=== PATIENT | female | born 1945 | race Caucasian/White ===

== ENCOUNTER 2020-02-02 10:48 | Emergency (ER) | payer MEDICARE, SELFPAY ==
[2020-02-02] VITALS (10 sets, daily range): BP systolic 88–124; BP diastolic 46–97; PULSE 90–126; RESP 18–28; TEMP 36.3–37.4; O2SAT 95–99
--- NOTE | ~2020-02-02 | CT_ITS ---
EXAMINATION: CTA chest PE protocol EXAM DATE: 02/02/2020 12:43 INDICATION: Shortness of breath, fever, right lung cancer. TECHNIQUE: Spiral CTA of the chest (pulmonary arteries) was performed with 100 cc Omnipaque 350 intr avenous contrast injection. Images were acquired during the pulmonary arterial phase. Coronal maxi mum intensity projection 3D-reconstructions were created by the technologist on dedicated workstation . Axial, coronal and sagittal reformatted images were reviewed. The dose-length product (DLP) for t his examination was 348.81 mGy-cm. The exposure was tailored according to patient size (auto mA exp osure control), and iterative reconstruction (ASIR) was used as additional dose reduction technique. Comparison is made to prior examination from 09/06/2017. FINDINGS: No pulmonary emboli. Significant interval increase in size of infiltrative right hilar mas s radiating out to the periphery consistent with lymphangitic spread. Small amount of ill-defined lef t perihilar nonspecific airspace disease, acute versus chronic. There is mild to moderate emphysema. No thoracic aortic dissection. There are no pleural or pericardial effusions. Tracheobronchial jamal e is patent. There is no mediastinal, hilar or axillary lymphadenopathy. There is no pneumothorax . Heart normal in size. There is moderate coronary arterial calcification, arterial sclerosis. Th ere is small sliding gastroesophageal hiatal hernia. Upper abdomen is unremarkable. There is thora cic spondylosis without osteoblastic or osteolytic lesions identified. IMPRESSION: 1. Large right hilar infiltrative mass, carcinomatosis extending from the apex down to the infrahila r region. 2. Small left perihilar nonspecific ill-defined airspace disease, could be infection or carcinomatos is. 3. Mild to moderate emphysema. 4. No pulmonary emboli. Reviewed, dictated and finalized at location B. IMPRESSION: 1. Large right hilar infiltrative mass, carcinomatosis extending from the apex down to the infrahilar region. 2. Small left perihilar nonspecific ill-defined airspace disease, could be inf ection or carcinomatosis. 3. Mild to moderate emphysema. 4. No pulmonary emboli.
--- NOTE | 2020-02-02 11:10 | ECG_ITS ---
Measurements Intervals [place] Rate: 139 P: CA: 0 QRS: -68 QRSD: 102 T: 79 QT: 331 QTc: 504 Interpretive Statements SINUS TACHYCARDIA SUPRAVENTRICULAR BIGEMINY LEFT AXIS DEVIATION INCOMPLETE RIGHT BUNDLE BRANCH BLOCK DELAYED PRECORDIAL R/S TRANSITION BASELINE ARTIFACT- V4-V5 ABNORMAL ECG Electronically Signed On 02-02-2020 11:24:39 CDT by Darrian Fitch D.O.
--- NOTE | 2020-02-02 11:14 | PC.NURSE ---
pt hand-off report given to bruce Rojo
--- NOTE | 2020-02-02 11:30 | ED.SOB ---
HPI - SOB/Dyspnea General Chief Complaint: Shortness of Breath/Dyspnea Stated Complaint: SOB Source: patient and family Mode of arrival: ambulatory Limitations: no limitations History of Present Illness HPI Narrative: Patient is a 75-year-old female who presents to the emergency department with complaints of shortness of breath. Patient does have extensive history of lung issues including active lung cancer. Earlier this year she had pneumonia and was hospitalized for approximately 3 weeks. this current bout of shortness of breath started approximately 5 days ago. She has had low-grade fevers also. She denies fevers chills nausea or vomiting. Patient that a week ago she would be able to walk around her house without much difficulty, however today she tried to go to the bathroom for her bedroom and was exhausted and out of breath. Her respiratory status normally include some mild shortness of breath, however her shortness of breath now is quite excessive. MD elicited complaint: shortness of breath and cough Pertinent past history: pneumonia and IV drug use Onset (ago): day(s) (5) Context: recent illness Timing: constant Severity: mild Exacerbating factors: exertion, coughing, inspiration and stress Relieving factors: nothing Known history of: recurrent pneumonia and other ( Cancer) Associated symptoms: fever, cough, sputum production and lightheadedness Treatment prior to arrival: none Related Data Home Medications Medication Instructions Recorded Confirmed albuterol sulfate 2 puff INHALATION PRN 07/09/19 02/02/20 atorvastatin 10 mg PO DAILY 07/09/19 02/02/20 diltiazem HCl [Cartia XT] 120 mg PO DAILY 07/09/19 02/02/20 levothyroxine 125 mcg PO DAILY 07/09/19 02/02/20 lisinopril 10 mg PO DAILY 07/09/19 02/02/20 montelukast 10 mg PO DAILY 07/09/19 02/02/20 ondansetron HCl [Zofran] 4 mg PO Q6H PRN 07/09/19 02/02/20 paroxetine HCl 40 mg PO DAILY 07/09/19 02/02/20 Allergies Allergy/AdvReac Type Severity Reaction Status Date / Time erythromycin base AdvReac Palpitation Verified 07/04/19 13:34 s tramadol AdvReac Vomiting Verified 07/04/19 13:34 Review of Systems Constitutional: Constitutional: Denies chills, Reports fatigue, Reports fever(s) and Reports weakness Eyes: Eyes: Reports no additional eye complaints ENT: Reports system reviewed and no additional complaints, except as documented Cardiovascular: Cardiovascular: Denies chest pain, Denies rapid heart rate, Denies radiating jaw, neck or arm pain and Denies slow heart rate Respiratory: Respiratory: Denies chest congestion, Reports cough, Reports dyspnea and Denies wheezing Gastrointestinal: Gastrointestinal: Reports no additional gastrointestinal complaints Musculoskeletal: Musculoskeletal: Reports no additional musculoskeletal complaints Neurologic: Denies confusion, Denies vertigo, Denies dizziness, Denies syncope, Denies headache(s), Denies focal weakness, Denies numbness and Reports weakness Psychiatric: Psychiatric: Reports no additional psychiatric complaints Endocrine: Endocrine: Reports no additional endocrine complaints Hematologic/Lymphatic: Hematologic/Lymphatic: Reports no additional hematologic/lymphatic complaints Allergic/Immunologic: Allergic/Immunologic: Reports no additional allergic/immunologic complaints PMFSH Past Medical History Medical History Anxiety Asthma COPD (chronic obstructive pulmonary disease) Hypertension Hypothyroidism Osteoarthritis Surgical History Surgical History History of lung biopsy Hx of cataract surgery Social History Social History Smoking status: Former smoker Alcohol intake: former Substance use: never Gender identity (if verbalized by the patient): Female Exam Const: General: no acute distress, alert and ill a
[2020-02-02 11:50] LABS: Base Excess ABG -0.9 mmol/L (0-2); HCO3 ABG 20.4 mmol/L (23-29); Oxygen Content ABG 20.7 %vol (16.0-22.0); Oxygen Saturation ABG 90.3 % (95-97); Oxyhemoglobin 87.8 % (94-100); PCO2 ABG 26.6 mmHg (35-45); PO2 ABG 55.8 mmHg (75-85); Total Hemoglobin 16.8 g/dL
[2020-02-02 11:51] LABS: Modified Allen's Test Pass; Site Drawn LEFT BRACHIAL
[2020-02-02 11:52] LABS: Device ROOM AIR
[2020-02-02 11:57] LABS: Basophils Absolute Auto 0.02 K/mm3 (0.00-0.10); Basophils Percent Auto 0.3 % (0.0-1.0); Eosinophils Absolute Auto 0.07 K/mm3 (0.02-0.50); Eosinophils Percent Auto 0.9 % (1.0-6.0); Hematocrit 35.9 % (35.0-42.0); Hemoglobin 12.5 g/dL (11.7-13.8); Immature Granulocyte Absolute 0.03 K/mm3 (0.00-0.00); Immature Granulocyte Percent A 0.4 % (0.0-0.0); Lymphocytes Absolute Auto 0.58 K/mm3 (1.10-4.50); Lymphocytes Percent Auto 7.3 % (18.0-42.0); Mean Corpuscular HGB Conc 34.8 g/dL (32.0-36.0); Mean Corpuscular Hemoglobin 32.7 pg (27.0-31.0); Mean Platelet Volume 9.1 fl (9.2-11.8); Monocytes Absolute Auto 0.99 K/mm3 (0.10-0.90); Monocytes Percent Auto 12.5 % (2.0-11.0); Neutrophils Absolute Auto 6.3 K/mm3 (1.7-7.2); Neutrophils Percent Auto 78.6 % (50.0-70.0); Platelet Count Result 235 K/mm3 (150-420); Red Blood Count 3.82 M/mm3 (4.20-5.40); Red Cell Distribution Width 14.5 % (11.6-14.4)
[2020-02-02] MEDS: ACETAMINOPHEN 325 MG TABLET 650 MG PO (11:57)
[2020-02-02] MEDS: SODIUM CHLORIDE 0.9% IV 1,000 ML 999 ML IV CONT ×3 (11:57→14:56)
[2020-02-02 12:00] LABS: Add Urine Microscopic? YES; Appearance Urine Sl Cloudy (Clear); Bilirubin Urine 1+ (Negative); Blood Urine 3+ (Negative); Color Urine Amber (Yellow); Glucose Urine UA Trace (Negative); Ketones Urine Trace (Negative); Leukocyte Esterase Ur Negative LEU/UL (Negative); Nitrate Urine Positive (Negative); Protein Urine 2+ (Negative); Specific Grav Ur >= 1.030 (1.010-1.020); pH Urine 5.5 (5.0-8.0)
[2020-02-02 12:09] LABS: BNP 299 pg/mL (0-100)
[2020-02-02 12:12] LABS: Alanine Aminotransferase 13 U/L (14-59); Albumin Level 2.7 g/dL (3.4-5.0); Alkaline Phosphatase 158 U/L (46-116); Anion Gap 15.4 mmol/L (7-16); Aspartate Amino Transferase 14 U/L (15-37); Blood Urea Nitrogen 12 mg/dL (7-18); Carbon Dioxide 23 mmol/L (21-32); Chloride 99 mmol/L (98-108); Estimated CRCL calculation 46 ml/min; Estimated Glomerular Filt Rate > 60; Glucose 124 mg/dL (70-99); Magnesium 1.7 mg/dL (1.8-2.4); Osmolality Calculated 278 mOsm/kg (285-295); Potassium 3.4 mmol/L (3.5-5.1); Sodium 134 mmol/L (136-145); Total Protein 7.1 g/dL (6.4-8.2)
[2020-02-02 12:13] LABS: Troponin I < 0.02 ng/mL (0.00-0.056)
[2020-02-02 12:15] LABS: Bacteria Urine 4+ /hpf; Mucus Urine Heavy /lpf; RBC Urine 51-75 /hpf (0-2); Squamous Epithelial Cell Urine Many /hpf (Few)
--- NOTE | 2020-02-02 12:20 | PC.NURSE ---
Pt to ct via stretcher.
[2020-02-02 12:32] LABS: Influenza Control Valid (Valid)
--- NOTE | 2020-02-02 12:35 | PC.NURSE ---
Pt returned to department.
[2020-02-02] MEDS: ALBUTEROL SULFATE (*SP) INHALER 2 PUFF INHALATION (12:53)
[2020-02-02] MEDS: dilTIAZem HCl INJ 25 MG/5 ML VIAL 5 MG IV PUSH (12:54)
--- NOTE | 2020-02-02 13:21 | ECG_ITS ---
Measurements Intervals [place] Rate: 98 P: 3 PA: 164 QRS: -48 QRSD: 101 T: 80 QT: 278 QTc: 356 Interpretive Statements SINUS RHYTHM INCOMPLETE RIGHT BUNDLE BRANCH BLOCK LEFT ANTERIOR FASCICULAR BLOCK BORDERLINE ST-T WAVE ABNORMALITY- LATERAL LEADS BASELINE WANDER- I, II, III, AVR, AVL, V2-V4 ABNORMAL ECG Electronically Signed On 02-02-2020 13:37:22 CDT by Darrian Fitch D.O.
--- NOTE | 2020-02-02 13:31 | PC.NURSE ---
Pt requesting [facility] for further care. Call placed to transfer line
[2020-02-02] MEDS: NICOTINE (*PBKC) 21 MG PATCH 1 PATCH TRANSDERM (13:50)
[2020-02-02] MEDS: POTASSIUM CHLORIDE 20 MEQ PACKET (FOR LIQUID) PO (13:51)
[2020-02-02] MEDS: MAGNESIUM OXIDE 400 MG TABLET PO (13:51)
== END 2020-02-02 18:36 | disposition short-term general hospital (02) ==
LOC: CHSED 10:51
PROVIDERS: Emergency Provider Emergency Medicine; PCP Internal Medicine
DX: J44.9 Chronic obstructive pulmonary disease, unspecified (principal); C34.90 Malignant neoplasm of unspecified part of unspecified bronchus or lung; I10 Essential (primary) hypertension; E03.9 Hypothyroidism, unspecified; Z87.891 Personal history of nicotine dependence; R82.90 Unspecified abnormal findings in urine
CPT/HCPCS: 36415; 36600; 71275; 80053; 81001; 82805; 83735; 83880; 84484; 85025; 85380; 87040; 87086; 87804; 93005; 96361; 96365; 96367; 99285; A9270; J0456; J1956; J7030; Q9965

== ENCOUNTER 2020-08-10 12:03 | Outpatient (CLI) | payer MEDICARE, SELFPAY ==
[2020-08-10 13:03] LABS: SARS-CoV-2 Ag Negative (Negative)
== END 2020-08-10 12:04 | disposition home or self-care (01) ==
LOC: CHSLAB 12:06
PROVIDERS: PCP Internal Medicine; Visit Provider Internal Medicine
DX: R05 Cough (principal); R50.9 Fever, unspecified
CPT/HCPCS: 87426; C9803

== ENCOUNTER 2020-08-11 10:53 | Outpatient (CLI) | payer MEDICARE, SELFPAY ==
--- NOTE | ~2020-08-11 | CT_ITS ---
EXAMINATION: CT chest abdomen pelvis w con DATE: 08/11/2020 12:11 INDICATION: Right upper quadrant abdominal pain. TECHNIQUE: Computed tomography (CT) of the chest, abdomen, and pelvis was performed with 100 mL Omnip aque 350 intravenous contrast. Automated exposure control and iterative reconstruction technique were employed. The dose-length product was 650.19 mGy-cm. COMPARISON: Chest CT 02/02/2020, 09/06/2017 FINDINGS: CHEST CT: There is mild emphysema. Again seen is a 6 mm nodule in left lower lobe that measured 4 mm on 8. Again seen are groundglass opacities in left upper lobe, likely radiation pneumonitis. There is an ill-defined right perihilar mass with collapse of right lung upper lobe. There are perihilar airspac e opacities in right middle lobe and right lower lobe with volume loss and varicose bronchiectasis, c onsistent with radiation pneumonitis. There are airspace and groundglass opacities and tree-in-bud op acities in right lower lobe anteriorly, consistent with pneumonia. There is a small right pleural eff usion. The heart size is normal. There are coronary artery calcifications. No pericardial effusion. T here is moderate thoracic spondylosis. ABDOMEN/PELVIS CT: There is an 8 mm cyst in the liver. There is a small sliding hiatal hernia. The spleen and adrenal gl ands are normal. A calcification the pancreas is is consistent with chronic pancreatitis. There is a 7 mm stone in right kidney. Left kidney is normal. There is a 4.5 cm fusiform aneurysm of infrarenal aorta. There are no dilated loops of bowel. The appendix is normal. There are no pathologically enlar ged lymph nodes. There is no free intraperitoneal fluid. There is severe lumbar spondylosis. IMPRESSION: 1. Stable ill-defined right perihilar mass with right upper lobe collapse, consistent with primary br onchogenic carcinoma. 2. 6 mm left lower lobe pulmonary nodule without change from 02/02/2020, but worsened from 4 mm on 09/06. This finding is indeterminate for metastatic disease. 3. Mild pneumonia in right lung lower lobe. 4. Radiation pneumonitis in the lungs, right worse than left. 5. 4.5 cm fusiform aneurysm of infrarenal aorta. Reviewed, dictated and finalized at location A. 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 Stable ill-defined right perihilar mass with right upper lobe collapse, cons istent with primary bronchogenic carcinoma. 2. 6 mm left lower lobe pulmonary nodule without change from 02/02/2020, but wor sened from 4 mm on 09/06/2017. This finding is indeterminate for metastatic disea se. 3. Mild pneumonia in right lung lower lobe. 4. Radiation pneumonitis in the lungs, right worse than left. 5. 4.5 cm fusiform aneurysm of infrarenal aorta.
[2020-08-11 11:09] LABS: Add Urine Microscopic? YES; Appearance Urine Clear (Clear); Basophils Absolute Auto 0.04 K/mm3 (0.00-0.10); Basophils Percent Auto 0.9 % (0.0-1.0); Bilirubin Urine Negative (Negative); Blood Urine 3+ (Negative); Color Urine Yellow (Yellow); Eosinophils Absolute Auto 0.22 K/mm3 (0.02-0.50); Eosinophils Percent Auto 4.7 % (1.0-6.0); Glucose Urine UA Negative (Negative); Hematocrit 36.7 % (35.0-42.0); Hemoglobin 12.2 g/dL (11.7-13.8); Immature Granulocyte Absolute 0.02 K/mm3 (0.00-0.00); Immature Granulocyte Percent A 0.4 % (0.0-0.0); Ketones Urine Negative (Negative); Leukocyte Esterase Ur Negative LEU/UL (Negative); Lymphocytes Absolute Auto 0.79 K/mm3 (1.10-4.50); Lymphocytes Percent Auto 16.9 % (18.0-42.0); Mean Corpuscular HGB Conc 33.2 g/dL (32.0-36.0); Mean Corpuscular Volume 96.3 fL (78.0-102.0); Mean Platelet Volume 8.4 fl (9.2-11.8); Monocytes Absolute Auto 0.44 K/mm3 (0.10-0.90); Monocytes Percent Auto 9.4 % (2.0-11.0); Neutrophils Absolute Auto 3.2 K/mm3 (1.7-7.2); Neutrophils Percent Auto 67.7 % (50.0-70.0); Nitrate Urine Negative (Negative); Platelet Count Result 272 K/mm3 (150-420); Protein Urine Negative (Negative); Red Blood Count 3.81 M/mm3 (4.20-5.40); Red Cell Distribution Width 13.9 % (11.6-14.4); Specific Grav Ur >= 1.030 (1.010-1.020); White Blood Count 4.7 K/mm3 (4.8-10.8); pH Urine 5.5 (5.0-8.0)
[2020-08-11 11:23] LABS: Estimated Glomerular Filt Rate > 60
[2020-08-11 11:28] LABS: Alanine Aminotransferase 14 U/L (14-59); Albumin Level 3.1 g/dL (3.4-5.0); Alkaline Phosphatase 164 U/L (46-116); Anion Gap 8 mmol/L (8-16); Aspartate Amino Transferase 11 U/L (15-37); Bilirubin,Total 0.3 mg/dL (0.00-1.00); Blood Urea Nitrogen 8 mg/dL (7-18); Calcium 9.2 mg/dL (8.5-10.1); Carbon Dioxide 27 mmol/L (21-32); Chloride 102 mmol/L (98-108); Glucose 115 mg/dL (70-99); Osmolality Calculated 283 mOsm/kg (285-295); Potassium 3.6 mmol/L (3.5-5.1); Sodium 137 mmol/L (136-145); Total Protein 7.5 g/dL (6.4-8.2)
[2020-08-11 11:35] LABS: Influenza Control Valid (Valid)
[2020-08-11 12:07] LABS: Bacteria Urine 1+ /hpf; RBC Urine 21-50 /hpf (0-2); Squamous Epithelial Cell Urine Moderate /hpf (Few); WBC Urine 0-3 /hpf (0-3)
== END 2020-08-11 10:54 | disposition home or self-care (01) ==
PROVIDERS: PCP Internal Medicine; Visit Provider Internal Medicine
DX: R10.11 Right upper quadrant pain (principal); Z85.118 Personal history of other malignant neoplasm of bronchus and lung; R05 Cough
CPT/HCPCS: 71260; 74177; 80053; 81001; 85025; 87804; Q9965; Q9967

== ENCOUNTER 2020-08-19 12:27 | Outpatient (CLI) | payer MEDICARE, SELFPAY | END 2020-08-19 12:28 | disposition home or self-care (01) | LOC: CHSLAB 12:28 | PROVIDERS: PCP Internal Medicine; Visit Provider Internal Medicine | DX: R31.9 Hematuria, unspecified (principal) | CPT/HCPCS: 88112 ==

== ENCOUNTER 2020-08-27 09:17 | Outpatient (CLI) | payer MEDICARE, SELFPAY ==
--- NOTE | ~2020-08-27 | XR_ITS ---
EXAMINATION: XR chest 2V EXAM DATE: 08/27/2020 09:42 INDICATION: f/u pneumonia from 1mo ago, smoker, hx lung CA. Follow-up pneumonia. TECHNIQUE: Frontal and lateral projections of the chest obtained and reviewed. Comparison is made to prior examination from 07/16/2019. FINDINGS: There is right hilar prominence, right-sided volume loss, partial pneumonectomy, patient re portedly has treated lung cancer. Can't identify the small amount of right middle lobe pneumonia seen on chest CT from earlier this month. Left lung is clear. Some chronic hyperinflation. Cardiomediasti nal silhouette is normal. There is aortic arteriosclerosis. There are bony degenerative changes. IMPRESSION: 1. No acute cardiac pulmonary findings. 2. Treated right upper lobe malignancy. Reviewed, dictated and finalized at location A. 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
== END 2020-08-27 09:18 | disposition home or self-care (01) ==
LOC: CHSLAB 09:18 → CHSIMG 09:23
PROVIDERS: PCP Internal Medicine; Visit Provider Internal Medicine
DX: Z51.89 Encounter for other specified aftercare (principal); J18.9 Pneumonia, unspecified organism
CPT/HCPCS: 71046

== ENCOUNTER 2020-10-15 12:09 | Outpatient (CLI) | payer MEDICARE, SELFPAY ==
[2020-10-15 13:06] LABS: SARS-CoV-2 Ag Negative (Negative)
== END 2020-10-15 12:10 | disposition home or self-care (01) ==
LOC: CHSLAB 12:11
PROVIDERS: PCP Internal Medicine; Visit Provider Internal Medicine
DX: Z20.822 Contact with and (suspected) exposure to COVID-19 (principal)
CPT/HCPCS: 87426; C9803

== ENCOUNTER 2020-11-18 13:44 | Outpatient (CLI) | payer MEDICARE, SELFPAY ==
--- NOTE | ~2020-11-18 | XR_ITS ---
XR chest 2V DATE: 11/18/2020 14:06 INDICATION: Dyspnea, labored breathing for 4 days. Nonsmoker. COPD. History of lung cancer. TECHNIQUE: PA and lateral views COMPARISON: 08/27/2020 2 view chest 08/11/2020 CT chestFS FINDINGS: There is chronic volume loss of the right lung with rightward shift of heart and mediastinu m, unchanged since 08/25/2020. There is chronic focal posterior infiltrate and/or mass density in the mid to upper right lung. Pulmonary hyperinflation, consistent with COPD. Normal heart size. Aortic calcification. Diffuse osteopenia. Degenerative changes of the cervical, thoracic and lumbar spine IMPRESSION: Little interval change since 08/27/2020 Reviewed, dictated and finalized at location A.
[2020-11-18 14:08] LABS: Basophils Absolute Auto 0.03 K/mm3 (0.00-0.10); Basophils Percent Auto 0.4 % (0.0-1.0); Eosinophils Percent Auto 1.3 % (1.0-6.0); Hematocrit 38.2 % (35.0-42.0); Hemoglobin 12.7 g/dL (11.7-13.8); Immature Granulocyte Absolute 0.03 K/mm3 (0.00-0.00); Immature Granulocyte Percent A 0.4 % (0.0-0.0); Lymphocytes Absolute Auto 1.16 K/mm3 (1.10-4.50); Lymphocytes Percent Auto 15.5 % (18.0-42.0); Mean Corpuscular HGB Conc 33.2 g/dL (32.0-36.0); Mean Corpuscular Hemoglobin 31.6 pg (27.0-31.0); Mean Platelet Volume 8.8 fl (9.2-11.8); Monocytes Absolute Auto 0.75 K/mm3 (0.10-0.90); Neutrophils Absolute Auto 5.4 K/mm3 (1.7-7.2); Neutrophils Percent Auto 72.4 % (50.0-70.0); Platelet Count Result 277 K/mm3 (150-420); Red Blood Count 4.02 M/mm3 (4.20-5.40); Red Cell Distribution Width 14.6 % (11.6-14.4); White Blood Count 7.5 K/mm3 (4.8-10.8)
[2020-11-18 14:34] LABS: Alanine Aminotransferase 18 U/L (14-59); Albumin Level 3.3 g/dL (3.4-5.0); Alkaline Phosphatase 212 U/L (46-116); Anion Gap 12 mmol/L (8-16); Aspartate Amino Transferase 14 U/L (15-37); Bilirubin,Total 0.7 mg/dL (0.00-1.00); Blood Urea Nitrogen 12 mg/dL (7-18); Calcium 9.4 mg/dL (8.5-10.1); Carbon Dioxide 25 mmol/L (21-32); Chloride 100 mmol/L (98-108); Estimated Glomerular Filt Rate > 60; Glucose 107 mg/dL (70-99); Osmolality Calculated 283 mOsm/kg (285-295); Sodium 137 mmol/L (136-145); Total Protein 7.2 g/dL (6.4-8.2)
[2020-11-18 19:18] LABS: Appearance Urine Clear (Clear); Bilirubin Urine Negative (Negative); Color Urine Yellow (Yellow); Glucose Urine UA Negative (Negative); Ketones Urine Negative (Negative); Leukocyte Esterase Ur Negative LEU/UL (Negative); Nitrate Urine Negative (Negative); Protein Urine Trace (Negative); Specific Grav Ur 1.025 (1.010-1.020); Urobilinogen Urine 0.2 mg/dL (0.2-1.0); pH Urine 6.5 (5.0-8.0)
[2020-11-18 19:30] LABS: Add Urine Microscopic? YES; Blood Urine Trace-Intact (Negative); WBC Urine 16-20 /hpf (0-3)
[2020-11-18 19:31] LABS: Bacteria Urine 3+ /hpf; Mucus Urine Heavy /lpf; Squamous Epithelial Cell Urine Many /hpf (Few)
== END 2020-11-18 13:45 | disposition home or self-care (01) ==
LOC: CHSLAB 13:45
PROVIDERS: PCP Internal Medicine; Visit Provider Nurse Practitioner Family
DX: J44.1 Chronic obstructive pulmonary disease with (acute) exacerbation (principal); R82.90 Unspecified abnormal findings in urine
CPT/HCPCS: 36415; 71046; 80053; 81001; 85025; 87086

== ENCOUNTER 2021-03-11 08:05 | Outpatient (CLI) | payer MEDICARE, SELFPAY ==
--- NOTE | ~2021-03-11 | XR_ITS ---
XR barium swallow DATE: 03/11/2021 08:45 INDICATION: Food sticking in the upper thoracic area. History 2 courses of radiation therapy for lung cancer. TECHNIQUE: Single contrast upper gastrointestinal series 1.5 minutes fluoroscopy time; 92 images DAP: 4.8 COMPARISON: None FINDINGS: There is tapered narrowing of the esophagus beginning superiorly at the level of the aortic arch with severe stricture of the mid esophageal lumen and proximal delayed contrast material retent ion, likely due to radiotherapy. No persistent intraluminal filling defect is noted. Small sliding hiatal hernia. 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 Reviewed, dictated and finalized at location B.
== END 2021-03-11 08:06 | disposition home or self-care (01) ==
LOC: CHSIMG 08:06
PROVIDERS: PCP Internal Medicine; Visit Provider Internal Medicine
DX: R13.19 Other dysphagia (principal)
CPT/HCPCS: 74220

== ENCOUNTER 2021-04-29 18:21 | Emergency (ER) | payer MEDICARE, SELFPAY ==
[2021-04-29] VITALS (7 sets, daily range): BP systolic 97–113; BP diastolic 55–74; PULSE 107–161; RESP 16–22; TEMP 36.6–37; O2SAT 95
--- NOTE | ~2021-04-29 | CT_ITS ---
EXAMINATION: CTA chest PE protocol DATE: 04/29/2021 20:22 INDICATION: Shortness of breath, wheezing and weakness TECHNIQUE: Computed tomography (CT) pulmonary angiogram of the chest was performed with 100 mL Omnipa que-350 intravenous contrast. Additional 3D reconstructions utilizing coronal maximum intensity proje ction (MIP) were performed. Automated exposure control and iterative reconstruction technique were em ployed. The dose-length product was 314.24 mGy-cm. COMPARISON: 08/11/2020 and 02/02/2020 FINDINGS: Excellent contrast opacification of the pulmonary arteries. There is mild streak artifact from dense contrast in the superior vena cava and right atrium. Mild scattered respiratory motion artifact which does not significantly limit evaluation. No pulmonary embolism. Mild emphysema. Chronic collapse and consolidation of the right upper lobe. Interval improvement in additional perihilar atelectasis and consolidation in the right middle lobe and superior segment of the right lower lobe which is likely r elated to prior radiation treatment. New small region of discoid atelectasis/scarring at the medial b asilar left lower lobe. Also significantly improved are now subtle tree-in-bud opacities at the anter ior basilar right lower lobe likely sequela of prior infection. No pulmonary edema or pleural effusio n. Unchanged 6 mm left lower lobe pulmonary nodule. Normal sized heart which is shifted slightly towards the right due to the volume loss in the right mimi ng. Atherosclerotic coronary artery calcific location. No pericardial effusion. Enlargement of the ce ntral pulmonary arteries consistent with pulmonary arterial hypertension. Atherosclerotic calcificati ons along the normal caliber thoracic aorta with no dissection. Small sliding-type hiatal hernia. Wal l thickening in the mid to distal esophagus which could be due to esophagitis related to reflux, infe ction or radiation treatment. There is some layering fluid in the proximal to mid thoracic esophagus. No pathologically enlarged thoracic lymphadenopathy. Visualized upper abdomen is unremarkable. Sever e spondylosis in the upper lumbar spine with moderate thoracic and lower cervical spondylosis. There are bridging osteophytes at multiple levels in the thoracic spine consistent with diffuse idiopathic skeletal hyperostosis (DISH). IMPRESSION: 1. No pulmonary embolism or other acute cardiopulmonary disease. 2. Persistent right upper lobe collapse with improvement in perihilar consolidation in the right midd le and superior segment right lower lobes, likely sequela of radiation treatment of a reported right upper lobe primary bronchogenic carcinoma. 3. Mild emphysema. 4. Mild residual tree-in-bud opacities in the anterobasilar right lower lobe likely sequela of chroni c infection. 5. Enlargement of the central pulmonary arteries consistent with pulmonary arterial hypertension. 6. Small sliding-type hiatal hernia with wall thickening in the mid to distal esophagus consistent wi th esophagitis which could be due to reflux, infection or prior radiation treatment. Reviewed, dictated and finalized at location A. IMPRESSION: 1. No pulmonary embolism or other acute cardiopulmonary disease. 2. Persistent right upper lobe collapse with improvement in perihilar consolida tion in the right middle and superior segment right lower lobes, likely sequela of radiation treatment of a reported right upper lobe primary bronchogenic car cinoma. 3. Mild emphysema. 4. Mild residual tree-in-bud opacities in the anterobasilar right lower lobe li elmer sequela of chronic infection. 5. Enlargement of the central pulmonary arteries consistent with pulmonary sidney rial hypertension. 6. Small sliding-type hiatal hernia with wall thickening in th
--- NOTE | 2021-04-29 18:34 | ECG_ITS ---
Measurements Intervals [place] Rate: 151 P: [place]: 0 QRS: -34 QRSD: 92 T: 80 QT: 277 QTc: 440 Interpretive Statements ATRIAL FIBRILLATION WITH RAPID VENTRICULAR RESPONSE LEFT AXIS DEVIATION INCOMPLETE RIGHT BUNDLE BRANCH BLOCK CANNOT RULE OUT SEPTAL INFARCT, AGE INDETERMINATE BASELINE WANDER- I, AVR, AVL, V4-V6 ABNORMAL ECG Electronically Signed On 04-29-2021 20:46:21 CDT by Darrian Fitch D.O.
--- NOTE | 2021-04-29 18:43 | ED.SOB ---
HPI - SOB/Dyspnea General Chief Complaint: Shortness of Breath/Dyspnea Stated Complaint: trouble breathing,fast heart rate Source: patient and family Mode of arrival: ambulatory Limitations: no limitations History of Present Illness HPI Narrative: pt is a 76yo female who presents SOB. SHe had esophageal dilitation yesterday and today feels SOB. MD elicited complaint: shortness of breath and cough Pertinent past history: COPD Context: recent illness Timing: constant Severity: moderate Exacerbating factors: coughing Relieving factors: oxygen Known history of: COPD Associated symptoms: denies other symptoms and wheezing Treatment prior to arrival: bronchodilator (4 pm today) Related Data Home Medications Medication Instructions Recorded Confirmed albuterol sulfate 2 puff INHALATION PRN 07/09/19 04/29/21 atorvastatin 10 mg PO DAILY 07/09/19 04/29/21 levothyroxine 125 mcg PO DAILY 07/09/19 04/29/21 montelukast 10 mg PO DAILY 07/09/19 04/29/21 paroxetine HCl 40 mg PO HS 07/09/19 04/29/21 cyanocobalamin (vitamin B-12) 1,000 mcg SUBLINGUAL DAILY 04/29/21 04/29/21 diltiazem HCl 60 mg PO BID 04/29/21 04/29/21 fluticasone propionate 1 spray INTRANASAL DAILY 04/29/21 04/29/21 pantoprazole 40 mg PO BID 04/29/21 04/29/21 umeclidinium-vilanterol 1 inh INHALATION DAILY 04/29/21 04/29/21 Allergies Allergy/AdvReac Type Severity Reaction Status Date / Time erythromycin base AdvReac Palpitation Verified 07/04/19 13:34 s tramadol AdvReac Vomiting Verified 07/04/19 13:34 Review of Systems Constitutional: Constitutional: Reports fatigue (had general anesthetic yesterday with espohageal dilitation) ENT: Reports sore throat Respiratory: Respiratory: Reports cough, Reports dyspnea and Reports wheezing Gastrointestinal: Gastrointestinal: Denies constipation, Denies diarrhea, Denies nausea and Denies vomiting Genitourinary: Genitourinary: Reports no additional female genitourinary complaints Musculoskeletal: Musculoskeletal: Reports no additional musculoskeletal complaints Integumentary/Breasts: Skin/Breast: Reports system reviewed and no additional complaints, except as docu Neurologic: Reports system reviewed and no additional complaints, except as documented Psychiatric: Psychiatric: Reports no additional psychiatric complaints Endocrine: Endocrine: Reports no additional endocrine complaints Hematologic/Lymphatic: Hematologic/Lymphatic: Reports no additional hematologic/lymphatic complaints Allergic/Immunologic: Allergic/Immunologic: Reports no additional allergic/immunologic complaints [facility] Past Medical History Medical History (Updated 04/29/21 @ 21:49 by Radha Viera MD) Anxiety Asthma COPD (chronic obstructive pulmonary disease) Hypertension Hypothyroidism Osteoarthritis Surgical History Surgical History History of lung biopsy Hx of cataract surgery Social History Social History Smoking status: Former smoker Alcohol intake: former Substance use: never Gender identity (if verbalized by the patient): Female Exam Const: General: no acute distress and alert Orientation/consciousness: patient oriented x3 Other: speaking full sentences, tachpnea noted HENMT: Head: normal to inspection Eyes: Pupils: Equal, round and reactive pupils present Chest: Other: tachypnea Resp: Auscultation: wheezes Cardio: Rate: regular rate Rhythm: regular rhythm GI: GI Palp: Yes Soft to palpation, No Tenderness to palpation present (GI) and No Guarding due to palpation present (GI) : General: Yes no CVA tenderness Back/Spine/Pelvis: Back: no CVA tenderness Skin: General skin exam: normal color Neuro: General: patient oriented x3, moves all extremities, no meningeal signs and no focal motor deficits Extrem: General: normal to inspection Psych: Mental Status: mental status
[2021-04-29] MEDS: dilTIAZem HCl INJ 25 MG/5 ML VIAL 10 MG IV PUSH (18:45)
[2021-04-29] MEDS: methylPREDNISolone SOD SUCC 125 MG VIAL IV PUSH (18:45)
[2021-04-29] MEDS: SODIUM CHLORIDE 0.9% IV 500 ML 999 ML ×2 (19:03→20:08)
[2021-04-29 19:08] LABS: Alveolar/Arterial O2 Gradient 34.3 mmHg; Base Excess ABG 4.4 mmol/L (0-2); Carboxyhemoglobin 3.4 % (0-1.5); Fractional Inspired Oxygen 21 %; HCO3 ABG 27.1 mmol/L (23-29); Methemoglobin ABG 0.3 % (0-1.5); Oxygen Content ABG 17.7 %vol (16.0-22.0); Oxygen Saturation ABG 95.4 % (95-97); Oxyhemoglobin 91.9 % (94-100); PCO2 ABG 34.4 mmHg (35-45); PO2 ABG 74.2 mmHg (75-85); PO2 FiO2 Ratio Arterial Blood 3.53 %; Reduced Hemoglobin 4.4 % (0-1.5); Total Hemoglobin 13.7 g/dL (12.0-18.0); pH ABG 7.51 (7.35-7.45)
[2021-04-29 19:10] LABS: Basophils Absolute Auto 0.05 K/mm3 (0.00-0.10); Basophils Percent Auto 0.6 % (0.0-1.0); Eosinophils Absolute Auto 0.16 K/mm3 (0.02-0.50); Eosinophils Percent Auto 1.8 % (1.0-6.0); Hematocrit 39.1 % (35.0-42.0); Hemoglobin 13.1 g/dL (11.7-13.8); Immature Granulocyte Absolute 0.04 K/mm3 (0.00-0.00); Immature Granulocyte Percent A 0.4 % (0.0-0.0); Lymphocytes Absolute Auto 1.68 K/mm3 (1.10-4.50); Lymphocytes Percent Auto 18.9 % (18.0-42.0); Mean Corpuscular HGB Conc 33.5 g/dL (32.0-36.0); Mean Corpuscular Hemoglobin 31.8 pg (27.0-31.0); Mean Corpuscular Volume 94.9 fL (78.0-102.0); Mean Platelet Volume 8.8 fl (9.2-11.8); Monocytes Absolute Auto 0.97 K/mm3 (0.10-0.90); Monocytes Percent Auto 10.9 % (2.0-11.0); Neutrophils Percent Auto 67.4 % (50.0-70.0); Platelet Count Result 346 K/mm3 (150-420); Red Blood Count 4.12 M/mm3 (4.20-5.40); Red Cell Distribution Width 14.4 % (11.6-14.4); White Blood Count 8.9 K/mm3 (4.8-10.8)
[2021-04-29 19:28] LABS: Device ROOM AIR; Modified Allen's Test Pass; Site Drawn LEFT RADIAL
[2021-04-29 19:29] LABS: Magnesium 1.5 mg/dL (1.8-2.4); Troponin I 13.2 ng/L (0.00-60.4)
[2021-04-29 19:32] LABS: Alanine Aminotransferase 17 U/L (14-59); Albumin Level 3.1 g/dL (3.4-5.0); Alkaline Phosphatase 166 U/L (46-116); Anion Gap 12 mmol/L (8-16); Aspartate Amino Transferase 12 U/L (15-37); Bilirubin,Total 0.5 mg/dL (0.00-1.00); Blood Urea Nitrogen 14 mg/dL (7-18); Calcium 9.3 mg/dL (8.5-10.1); Carbon Dioxide 24 mmol/L (21-32); Chloride 103 mmol/L (98-108); Estimated Glomerular Filt Rate > 60; Glucose 122 mg/dL (70-99); Osmolality Calculated 289 mOsm/kg (285-295); Potassium 3.5 mmol/L (3.5-5.1); Sodium 139 mmol/L (136-145); Total Protein 7.5 g/dL (6.4-8.2)
--- NOTE | 2021-04-29 19:34 | PC.NURSE ---
1929 increase to 15mg/hr (cardizem)
[2021-04-29 20:16] LABS: SARS-CoV-2 Ag Negative (Negative)
[2021-04-29 20:16] LABS: Influenza Control Valid (Valid)
[2021-04-29] MEDS: MAGNESIUM SULF 2 GM/WATER 50ML 2 GM/50 ML BAG IVPB (20:25)
[2021-04-29 20:41] LABS: SARS-CoV-2 RNA PCR Negative (Negative)
[2021-04-29] MEDS: SODIUM CHLORIDE 0.9% IV 1,000 ML 999 ML IV CONT (21:20)
[2021-04-29 21:25] LABS: Appearance Urine Clear (Clear); Bilirubin Urine Negative (Negative); Color Urine Light Yellow (Yellow); Glucose Urine UA Negative (Negative); Ketones Urine Negative (Negative); Leukocyte Esterase Ur Negative LEU/UL (Negative); Nitrate Urine Negative (Negative); Protein Urine Negative (Negative)
--- NOTE | 2021-04-29 21:28 | PC.NURSE ---
cardizem decrease to 10mg/hr
[2021-04-29 21:29] LABS: Add Urine Microscopic? YES; Bacteria Urine Trace /hpf; Blood Urine Trace (Negative); RBC Urine 0-2 /hpf (0-2); Squamous Epithelial Cell Urine Rare /hpf (Few); WBC Urine 0-3 /hpf (0-3)
--- NOTE | 2021-04-29 21:34 | ECG_ITS ---
Measurements Intervals [place] Rate: 126 P: [place]: 0 QRS: -50 QRSD: 101 T: 80 QT: 320 QTc: 464 Interpretive Statements ATRIAL FIBRILLATION WITH RAPID VENTRICULAR RESPONSE LEFT AXIS DEVIATION INCOMPLETE RIGHT BUNDLE BRANCH BLOCK BORDERLINE T WAVE ABNORMALITY- ANT/HIGH LAT LEADS BASELINE WANDER- V4-V5 ABNORMAL ECG Electronically Signed On 04-30-2021 6:35:47 CDT by Darrian Fitch D.O.
[2021-04-29 21:38] LABS: Troponin I 13.3 ng/L (0.00-60.4)
[2021-04-29] MEDS: ONDANSETRON INJ 4 MG/2 ML VIAL IV PUSH (22:28)
== END 2021-04-29 22:46 | disposition short-term general hospital (02) ==
PROVIDERS: Emergency Provider Emergency Medicine; PCP Internal Medicine
DX: I48.91 Unspecified atrial fibrillation (principal); Z20.822 Contact with and (suspected) exposure to COVID-19; J44.9 Chronic obstructive pulmonary disease, unspecified; I10 Essential (primary) hypertension; E03.9 Hypothyroidism, unspecified; Z87.891 Personal history of nicotine dependence
CPT/HCPCS: 36415; 36600; 71275; 80053; 81001; 82375; 82805; 83050; 83735; 84484; 85025; 85380; 87426; 87804; 93005; 96361; 96365; 96366; 96368; 96375; 99285; C9803; J2405; J2930; J3475; J7030; J7040; Q9967; U0003; U0005

== ENCOUNTER 2021-06-29 17:33 | Emergency (ER) | payer MEDICARE, SELFPAY ==
--- NOTE | ~2021-06-29 | XR_ITS ---
XR chest 1V portable 06/29/2021 19:28 Indication: Cough, fever and dyspnea. Nausea and vomiting. Procedure: AP portable chest Comparison: Comparison to multiple prior studies sequentially, with oldest reviewed study dated 07/06. Findings: There is chronic right upper lobe scarring. There is chronic scarring right lung base with elevation of the right diaphragm. Heart size upper normal. There is atherosclerosis. There are emphys ematous changes. No acute focal pneumonia, edema or effusion. No significant interval change. Impression: 1: Extensive chronic scarring of the right lung with volume loss and elevated right diaphragm. 2: Emphysema. Reviewed, dictated and finalized at location A. OR OCCUPATIONAL THERAPIST Impression: 1: Extensive chronic scarring of the right lung with volume loss and elevated r ight diaphragm. 2: Emphysema.
[2021-06-29 17:45] VITALS: BP 115/66; PULSE 94; RESP 20; TEMP 38.7; O2SAT 94
--- NOTE | 2021-06-29 18:25 | ED.FEVER ---
HPI - Fever General Chief Complaint: Fever Stated Complaint: vomiting/allergic reaction to med Time Seen by Provider: 06/29/21 18:25 Source: patient and family Mode of arrival: ambulatory Limitations: no limitations History of Present Illness HPI Narrative: 76-year-old woman with a history of metastatic lung cancer comes to the emergency department with a 36 hour history of vomiting, fever and cough. She has recently had chemotherapy for her neoplasm which she did not tolerate well and is currently taking Keytruda. Patient is concerned that her symptoms are from the immunotherapy. She is vaccinated against COVID and influenza and has had no recent sick contacts. She denies diarrhea, rash, headache, stiff neck, chest pain, hemoptysis, dysuria, hematuria or urinary frequency. MD elicited complaint: fever and malaise Pertinent past history: immunosuppression Onset (ago): hour(s) (36) Context: on immunosuppressant(s) Exacerbating factors: nothing Relieving factors: nothing Associated symptoms: rhinorrhea, nasal congestion, cough, nausea and vomiting Treatments prior to arrival fever: acetaminophen Related Data Home Medications Medication Instructions Recorded Confirmed albuterol sulfate 2 puff INHALATION PRN 07/09/19 06/29/21 atorvastatin 10 mg PO DAILY 07/09/19 06/29/21 levothyroxine 125 mcg PO DAILY 07/09/19 06/29/21 montelukast 10 mg PO DAILY 07/09/19 06/29/21 paroxetine HCl 40 mg PO HS 07/09/19 06/29/21 cyanocobalamin (vitamin B-12) 1,000 mcg SUBLINGUAL DAILY 04/29/21 06/29/21 diltiazem HCl 60 mg PO TID 04/29/21 06/29/21 fluticasone propionate 1 spray INTRANASAL DAILY 04/29/21 06/29/21 pantoprazole 40 mg PO BID 04/29/21 06/29/21 umeclidinium-vilanterol 1 inh INHALATION DAILY 04/29/21 06/29/21 Allergies Allergy/AdvReac Type Severity Reaction Status Date / Time erythromycin base AdvReac Palpitation Verified 06/29/21 19:48 s tramadol AdvReac Vomiting Verified 06/29/21 19:48 Review of Systems Review of Systems: All systems reviewed & are unremarkable except as noted in HPI and below Constitutional: Constitutional: Denies chills, Reports fatigue and Reports fever(s) Eyes: Eyes: Denies change in vision and Denies photophobia ENT: Denies dysphagia, Reports nasal congestion and Reports sore throat Cardiovascular: Cardiovascular: Denies chest pain and Denies radiating jaw, neck or arm pain Respiratory: Respiratory: Reports cough, Reports dyspnea and Denies wheezing Gastrointestinal: Gastrointestinal: Denies diarrhea, Reports nausea and Reports vomiting Genitourinary: Genitourinary: Denies hematuria, Denies nocturia and Denies dysuria Musculoskeletal: Musculoskeletal: Denies back pain, Denies arthralgias and Denies joint swelling Integumentary/Breasts: Skin/Breast: Denies pruritus, Denies erythema and Denies rash Neurologic: Denies vertigo, Denies dizziness and Denies syncope Hematologic/Lymphatic: Hematologic/Lymphatic: Denies easy bleeding and Denies easy bruising Allergic/Immunologic: Allergic/Immunologic: Denies lip swelling and Denies throat swelling PMFSH Past Medical History Medical History (Updated 06/29/21 @ 22:04 by Osiel Sykes MD) Anxiety Asthma COPD (chronic obstructive pulmonary disease) Hypertension Hypothyroidism Osteoarthritis Surgical History Surgical History History of lung biopsy Hx of cataract surgery Social History Social History Smoking status: Former smoker Alcohol intake: former Substance use: never Gender identity (if verbalized by the patient): Female Exam Const: General: healthy appearing and alert Orientation/consciousness: patient oriented x3 Limitations: no limitations Other: Mild acute distress. HENMT: Head: normal to inspection Ears: external ears normal and TM's normal bilaterally General nose exam: Normal nares present Face an
[2021-06-29] MEDS: SODIUM CHLORIDE 0.9% IV 1,000 ML 999 ML IV CONT (19:01)
--- NOTE | 2021-06-29 19:12 | PC.NURSE ---
report to [facility]
[2021-06-29 19:15] LABS: Basophils Absolute Auto 0.03 K/mm3 (0.00-0.10); Basophils Percent Auto 0.3 % (0.0-1.0); Hematocrit 35.5 % (35.0-42.0); Hemoglobin 11.9 g/dL (11.7-13.8); Immature Granulocyte Absolute 0.06 K/mm3 (0.00-0.00); Immature Granulocyte Percent A 0.6 % (0.0-0.0); Lymphocytes Absolute Auto 0.98 K/mm3 (1.10-4.50); Lymphocytes Percent Auto 9.4 % (18.0-42.0); Mean Corpuscular HGB Conc 33.5 g/dL (32.0-36.0); Mean Corpuscular Hemoglobin 31.5 pg (27.0-31.0); Mean Corpuscular Volume 93.9 fL (78.0-102.0); Mean Platelet Volume 8.9 fl (9.2-11.8); Monocytes Absolute Auto 1.06 K/mm3 (0.10-0.90); Monocytes Percent Auto 10.1 % (2.0-11.0); Neutrophils Absolute Auto 8.4 K/mm3 (1.7-7.2); Neutrophils Percent Auto 79.6 % (50.0-70.0); Platelet Count Result 299 K/mm3 (150-420); Red Blood Count 3.78 M/mm3 (4.20-5.40); Red Cell Distribution Width 14.7 % (11.6-14.4); White Blood Count 10.5 K/mm3 (4.8-10.8)
--- NOTE | 2021-06-29 19:18 | PC.NURSE ---
attempted abg per [facility] lab staff unsuccessful. pt declined to try again.
[2021-06-29 19:35] LABS: Lactic Acid Reflex 1.2 mmol/L (0.4-2.0)
[2021-06-29 19:39] LABS: Alanine Aminotransferase 11 U/L (14-59); Albumin Level 2.9 g/dL (3.4-5.0); Alkaline Phosphatase 153 U/L (46-116); Anion Gap 13 mmol/L (8-16); Aspartate Amino Transferase 12 U/L (15-37); Bilirubin,Total 0.7 mg/dL (0.00-1.00); Blood Urea Nitrogen 22 mg/dL (7-18); Carbon Dioxide 23 mmol/L (21-32); Chloride 98 mmol/L (98-108); Estimated Glomerular Filt Rate > 60; Glucose 112 mg/dL (70-99); Osmolality Calculated 282 mOsm/kg (285-295); Potassium 3.6 mmol/L (3.5-5.1); Sodium 134 mmol/L (136-145); Total Protein 7.4 g/dL (6.4-8.2)
[2021-06-29 19:41] LABS: CRP > 25.0 mg/dL (0.0-0.9)
[2021-06-29 19:51] LABS: Influenza A QL RT-PCR Negative (Negative); Influenza B QL RT-PCR Negative (Negative); SARS-CoV-2 RNA PCR Negative (Negative)
[2021-06-29 21:01] LABS: Add Urine Microscopic? YES; Bilirubin Urine Negative (Negative); Blood Urine 3+ (Negative); Glucose Urine UA Negative (Negative); Ketones Urine Trace (Negative); Leukocyte Esterase Ur Trace LEU/UL (Negative); Nitrate Urine Negative (Negative); Protein Urine Trace (Negative); Specific Grav Ur >= 1.030 (1.010-1.020)
[2021-06-29 21:07] LABS: Appearance Urine Cloudy (Clear); Color Urine Dark Yellow (Yellow); RBC Urine >75 /hpf (0-2)
[2021-06-29 21:08] LABS: Bacteria Urine 1+ /hpf; Mucus Urine Heavy /lpf; Squamous Epithelial Cell Urine Many /hpf (Few)
[2021-06-29] MEDS: ONDANSETRON INJ 4 MG/2 ML VIAL IV PUSH (21:18)
[2021-06-29 21:27] VITALS: BP 116/59; PULSE 96; RESP 16; TEMP 37.2; O2SAT 98
[2021-06-30 00:07] VITALS: BP 117/58; PULSE 91; RESP 17; O2SAT 94
--- NOTE | 2021-07-02 19:14 | PC.NURSE ---
Lab contacted this staff member that the pt has one positive blood culture for gram positive in the aerobic bottle only. pt was transferred to [facility].
== END 2021-06-30 00:10 | disposition short-term general hospital (02) ==
PROVIDERS: Emergency Provider Emergency Medicine; PCP Internal Medicine
DX: R50.9 Fever, unspecified (principal); D84.9 Immunodeficiency, unspecified; E86.0 Dehydration; Z20.822 Contact with and (suspected) exposure to COVID-19; J44.9 Chronic obstructive pulmonary disease, unspecified; I10 Essential (primary) hypertension; E03.9 Hypothyroidism, unspecified; Z87.891 Personal history of nicotine dependence; C34.90 Malignant neoplasm of unspecified part of unspecified bronchus or lung
CPT/HCPCS: 36415; 71045; 80053; 81001; 83605; 85025; 86140; 87040; 87147; 87186; 87502; 96361; 96365; 96366; 96367; 96375; 99285; C9803; J0696; J2405; J3370; J7030; U0003; U0005

== ENCOUNTER 2021-08-01 19:08 | Emergency (ER) | payer MEDICARE, SELFPAY ==
--- NOTE | ~2021-08-01 | CT_ITS ---
EXAMINATION: CTA chest PE protocol DATE: 08/01/2021 20:56 INDICATION: Shortness of breath, productive cough for one week. History of lung cancer. Covid-positiv e. Elevated d-dimer. TECHNIQUE: Computed tomography angiography (CTA) of the chest was performed with 100 mL Omnipaque-350 intravenous contrast timed to evaluate the pulmonary arteries. Coronal maximum intensity projection 3D-reconstructions were created by the technologist. Automated exposure control and iterative reconst ruction technique were employed. Exam dose: 190.39 mGy-cm total exam DLP. COMPARISON: 06/25/2021 portable AP chest 04/29/2021 CT pulmonary scan FINDINGS: There is diagnostic contrast enhancement of the pulmonary stenosis evidence of pulmonary em bolism. There is chronic stable right lung volume loss with rightward shift of the heart mediastinum, likely postoperative radiation change extending from the left hilum into the posterior mid to upper right mimi ng. Emphysematous changes are noted. There are patchy groundglass infiltrates scattered in both lung elizabeth, particularly left lower lobe, new since 04/29/2021, suggesting bilateral Covid 19 pneumonia Small right pleural effusion. No left pleural effusion. Normal heart size. No pericardial effusion. Small sliding hiatal hernia. Nonobstructing mid right renal calculus measures approximately 2.7 x 6 m m. Normal morphology of the adrenal glands. Infrarenal abdominal aortic aneurysm is partially included in this examination. Prominent degenerative disc disease in the lower cervical spine. Diffuse idiopathic skeletal hyperost osis of the thoracic spine. Multilevel degenerative disc disease of the included lumbar spine. No suspicious osteolytic or osteoblastic lesions are identified. IMPRESSION: Bilateral patchy groundglass infiltrates, new since 04/29/2021 CT thorax scan, likely due to bilateral Covid pneumonia New small right pleural effusion No other significant change since 04/29/2021 No evidence of pulmonary embolism Infrarenal abdominal aortic aneurysm Right nephrolithiasis Small sliding hiatal hernia Reviewed, dictated and finalized at [facility]. Reviewed, dictated and finalized at location A. EWAY ATTENDANT IMPRESSION: Bilateral patchy groundglass infiltrates, new since 04/29/2021 CT t horax scan, likely due to bilateral Covid pneumonia New small right pleural effusion No other significant change since 04/29/2021 No evidence of pulmonary embolism Infrarenal abdominal aortic aneurysm Right nephrolithiasis Small sliding hiatal hernia
[2021-08-01 19:20] VITALS: BP 155/84; PULSE 102; RESP 20; TEMP 36.6; O2SAT 85; O2SAT 91
--- NOTE | 2021-08-01 19:27 | ECG_ITS ---
Measurements Intervals [place] Rate: 101 P: 90 KS: 186 QRS: -38 QRSD: 100 T: 83 QT: 334 QTc: 434 Interpretive Statements SINUS TACHYCARDIA FREQUENT ATRIAL PREMATURE COMPLEXES LEFT AXIS DEVIATION INCOMPLETE RIGHT BUNDLE BRANCH BLOCK DELAYED PRECORDIAL R/S TRANSITION BORDERLINE ST-T WAVE ABNORMALITY- HIGH LATERAL LEADS BASELINE ARTIFACT- II, III, AVR, AVL, AVF ABNORMAL ECG Electronically Signed On 08-02-2021 7:45:05 DESKTOP SUPPORT TECHNICIAN by Darrian Fitch D.O.
--- NOTE | 2021-08-01 19:35 | PC.NURSE ---
spoke with daughter, emergency contact, who states that patient's lung cancer has metastasized to esophageal cancer in late fall of this year. States seeing oncologist at [facility].
[2021-08-01 19:37] VITALS: PULSE 101
--- NOTE | 2021-08-01 19:42 | ED.GENADULT ---
HPI - General Adult General Chief complaint: Shortness of Breath/Dyspnea Stated complaint: trouble breathing Source: patient and family Mode of arrival: ambulatory Limitations: no limitations History of Present Illness HPI narrative: Rose Mary carroll 76F with a PMH of anxiety, hypothyroidism, HTN, OA, COPD, asthma, and stage IV lung cancer that presented to the emergency department with shortness of breath and cough. Last week she started to have rhinorrhea, congestion, drainage and cough. Over the last few days she has had worsening congestion in her chest, cough and shortness of breath. She denies chest pain, N/V/D and abdominal pain as well as syncope. Related Data Home Medications Medication Instructions Recorded Confirmed albuterol sulfate 2 puff INHALATION PRN 07/09/19 08/01/21 atorvastatin 10 mg PO DAILY 07/09/19 08/01/21 levothyroxine 125 mcg PO DAILY 07/09/19 08/01/21 montelukast 10 mg PO DAILY 07/09/19 08/01/21 paroxetine HCl 40 mg PO HS 07/09/19 08/01/21 cyanocobalamin (vitamin B-12) 1,000 mcg SUBLINGUAL DAILY 04/29/21 08/01/21 diltiazem HCl 60 mg PO TID 04/29/21 08/01/21 fluticasone propionate 1 spray INTRANASAL DAILY 04/29/21 08/01/21 pantoprazole 40 mg PO BID 04/29/21 08/01/21 umeclidinium-vilanterol 1 inh INHALATION DAILY 04/29/21 08/01/21 Allergies Allergy/AdvReac Type Severity Reaction Status Date / Time erythromycin base AdvReac Palpitation Verified 06/29/21 19:48 s tramadol AdvReac Vomiting Verified 06/29/21 19:48 Review of Systems Constitutional: Constitutional: Reports fatigue and Reports weakness Eyes: Eyes: Reports no additional eye complaints ENT: Reports as per HPI Cardiovascular: Cardiovascular: Reports no additional cardiovascular complaints Respiratory: Respiratory: Reports as per HPI Gastrointestinal: Gastrointestinal: Reports no additional gastrointestinal complaints Genitourinary: Genitourinary: Reports no additional female genitourinary complaints Musculoskeletal: Musculoskeletal: Reports no additional musculoskeletal complaints Integumentary/Breasts: Skin/Breast: Reports system reviewed and no additional complaints, except as docu Neurologic: Reports system reviewed and no additional complaints, except as documented Psychiatric: Psychiatric: Reports no additional psychiatric complaints Endocrine: Endocrine: Reports no additional endocrine complaints Hematologic/Lymphatic: Hematologic/Lymphatic: Reports no additional hematologic/lymphatic complaints Allergic/Immunologic: Allergic/Immunologic: Reports no additional allergic/immunologic complaints [facility] Past Medical History Medical History (Updated 08/12/21 @ 15:03 by Jimbo Dunn DO) Anxiety Asthma COPD (chronic obstructive pulmonary disease) Hypertension Hypothyroidism Osteoarthritis Surgical History Surgical History History of lung biopsy Hx of cataract surgery Social History Social History Smoking status: Former smoker Alcohol intake: former Substance use: never Gender identity (if verbalized by the patient): Female Exam Const: General: alert Orientation/consciousness: patient oriented x3 Limitations: No altered mental status Other: mild distress HENMT: Head: normal to inspection Other: normocephalic, atraumatic Eyes: Conjunctivae: conjunctivae normal Pupils: Equal, round and reactive pupils present Neck: Neck: normal visual inspection Chest: Chest palpation & inspection: normal inspection of the chest Resp: Effort & Inspection: labored (mildly labored ) and tachypneic Auscultation: wheezes scattered wheezes Other: crackles in the RLL Cardio: Rate: tachycardic Rhythm: regular rhythm Heart sounds: no murmurs GI: Inspection: non-distended GI Palp: Yes Soft to palpation, No Tenderness to palpation present (GI) and No Guarding due to palpation present (GI) : Ge
[2021-08-01 19:51] LABS: Base Excess ABG -0.1 mmol/L (0-2); HCO3 ABG 22.3 mmol/L (23-29); Oxygen Content ABG 15.4 %vol (16.0-22.0); Oxygen Saturation ABG 91.3 % (95-97); Oxyhemoglobin 88.7 % (94-100); PCO2 ABG 29.9 mmHg (35-45); PO2 ABG 59.3 mmHg (75-85); Total Hemoglobin 12.3 g/dL (12.0-18.0); pH ABG 7.49 (7.35-7.45)
[2021-08-01 19:54] LABS: Basophils Absolute Auto 0.03 K/mm3 (0.00-0.10); Basophils Percent Auto 0.3 % (0.0-1.0); Eosinophils Absolute Auto 0.06 K/mm3 (0.02-0.50); Eosinophils Percent Auto 0.6 % (1.0-6.0); Hematocrit 34.9 % (35.0-42.0); Hemoglobin 11.6 g/dL (11.7-13.8); Immature Granulocyte Absolute 0.03 K/mm3 (0.00-0.00); Immature Granulocyte Percent A 0.3 % (0.0-0.0); Lymphocytes Percent Auto 6.9 % (18.0-42.0); Mean Corpuscular HGB Conc 33.2 g/dL (32.0-36.0); Mean Corpuscular Hemoglobin 31.5 pg (27.0-31.0); Mean Corpuscular Volume 94.8 fL (78.0-102.0); Mean Platelet Volume 8.8 fl (9.2-11.8); Monocytes Absolute Auto 0.82 K/mm3 (0.10-0.90); Monocytes Percent Auto 8.1 % (2.0-11.0); Neutrophils Absolute Auto 8.5 K/mm3 (1.7-7.2); Neutrophils Percent Auto 83.8 % (50.0-70.0); Platelet Count Result 309 K/mm3 (150-420); Red Blood Count 3.68 M/mm3 (4.20-5.40); Red Cell Distribution Width 14.7 % (11.6-14.4); White Blood Count 10.2 K/mm3 (4.8-10.8)
[2021-08-01 19:59] LABS: Device NASAL CANNULA; Modified Allen's Test Pass; Site Drawn LEFT RADIAL
[2021-08-01 20:06] VITALS: BP 129/76; PULSE 108; RESP 20; TEMP 36.6; O2SAT 93
[2021-08-01 20:08] LABS: INR 1.1; Prothrombin Time 11.9 Seconds (9.50-12.10)
[2021-08-01 20:15] LABS: Lactic Acid Reflex 1.3 mmol/L (0.4-2.0)
[2021-08-01 20:20] LABS: Alanine Aminotransferase 9 U/L (14-59); Albumin Level 2.8 g/dL (3.4-5.0); Alkaline Phosphatase 175 U/L (46-116); Anion Gap 10 mmol/L (8-16); Aspartate Amino Transferase < 10 U/L (15-37); Bilirubin,Total 0.5 mg/dL (0.00-1.00); Blood Urea Nitrogen 10 mg/dL (7-18); Calcium 8.5 mg/dL (8.5-10.1); Carbon Dioxide 24 mmol/L (21-32); Chloride 101 mmol/L (98-108); Estimated Glomerular Filt Rate > 60; Glucose 124 mg/dL (70-99); NT Pro B Type Natriuretic Pept 344 pg/mL (0-450); Osmolality Calculated 280 mOsm/kg (285-295); Potassium 3.1 mmol/L (3.5-5.1); Sodium 135 mmol/L (136-145); Total Protein 7.2 g/dL (6.4-8.2); Troponin I 8.5 ng/L (0.00-60.4)
--- NOTE | 2021-08-01 20:21 | PC.NURSE ---
Patient provided warm blanket at this time. lights dimmed for comfort. call light within patient's reach
[2021-08-01 20:25] LABS: Thyroid Stimulating Hormone 0.27 uIU/mL (0.36-3.74)
[2021-08-01 20:33] LABS: Influenza A QL RT-PCR Negative (Negative); Influenza B QL RT-PCR Negative (Negative); SARS-CoV-2 RNA PCR Negative (Negative)
--- NOTE | 2021-08-01 20:45 | PC.NURSE ---
spoke with Shivani, betty, in regards to patient's COVID swab resulting negative. Daughter states she will be up in a few minutes to sit with patient. Patient currently in CT.
[2021-08-01 21:22] LABS: Add Urine Microscopic? YES; Appearance Urine Clear (Clear); Bilirubin Urine Negative (Negative); Blood Urine 2+ (Negative); Color Urine Light Yellow (Yellow); Glucose Urine UA Negative (Negative); Ketones Urine Negative (Negative); Leukocyte Esterase Ur Negative (Negative); Nitrate Urine Negative (Negative); Protein Urine Negative (Negative); Specific Grav Ur <= 1.005 (1.010-1.020); Urobilinogen Urine 0.2 mg/dL (0.2-1.0)
[2021-08-01 21:28] LABS: Bacteria Urine Trace /hpf; Mucus Urine Rare /lpf; Squamous Epithelial Cell Urine Rare /hpf (Few); WBC Urine 0-3 /hpf (0-3)
[2021-08-01 21:35] VITALS: BP 148/75; PULSE 112; RESP 18; TEMP 36.6; O2SAT 92
[2021-08-01] MEDS: SODIUM CHLORIDE 0.9% IV 1,000 ML 999 ML IV CONT (21:45)
--- NOTE | 2021-08-01 22:25 | PC.NURSE ---
patient assisted to bedside commode with x1 assist. patient becomes dyspnic upon exertion. patient voided approximately 200ml of clear yellow urine.
[2021-08-01] MEDS: ONDANSETRON INJ 4 MG/2 ML VIAL IV PUSH (23:02)
[2021-08-01 23:28] VITALS: BP 147/65; PULSE 112; RESP 28; TEMP 37.4; O2SAT 96
--- NOTE | 2021-08-01 23:30 | PC.NURSE ---
patient aware of pending transfer to [facility] to Onc floor. waiting on transfer center to call back with bed number.
--- NOTE | 2021-08-02 00:06 | PC.NURSE ---
RN called [facility] dispatch for transfer to [facility]
[2021-08-02 00:07] VITALS: BP 146/95; PULSE 116; RESP 22; TEMP 37.4; O2SAT 96
== END 2021-08-02 00:35 | disposition short-term general hospital (02) ==
PROVIDERS: Emergency Provider Family Medicine; PCP Internal Medicine
DX: A41.9 Sepsis, unspecified organism (principal); J96.01 Acute respiratory failure with hypoxia; Z20.822 Contact with and (suspected) exposure to COVID-19
CPT/HCPCS: 36415; 36600; 71275; 80053; 81001; 82805; 83605; 83880; 84443; 84484; 85025; 85610; 87040; 87502; 93005; 96365; 96367; 96368; 96375; 99285; C9803; J0692; J2405; J2543; J3370; J7030; Q9967; U0003; U0005

== ENCOUNTER 2021-08-15 20:43 | Observation (INO) | payer MEDICARE, SELFPAY ==
--- NOTE | ~2021-08-15 | XR_ITS ---
EXAMINATION: XR chest 2V DATE: 08/15/2021 22:03 INDICATION: Shortness of breath TECHNIQUE: PA and lateral views of the chest are obtained. COMPARISON: 06/29/2021 FINDINGS: There is chronic right upper lobe collapse without significant change. There is no pleural effusion or pneumothorax. There has been interval insertion of an esophageal stent. A gastrostomy is noted. The heart size is normal. There are bridging osteophytes at multiple levels in the spine, cons istent with diffuse idiopathic skeletal hyperostosis (DISH). IMPRESSION: 1. Chronic right upper lobe collapse without acute cardiopulmonary abnormality. 2. Interval insertion of an esophageal stent. Reviewed, dictated and finalized at location F. NESS PROCESS EXPERT
--- NOTE | ~2021-08-15 | CT_ITS ---
EXAMINATION: CTA chest PE protocol DATE: 08/15/2021 22:54 INDICATION: Shortness of breath TECHNIQUE: Computed tomography angiography (CTA) of the chest was performed with 100 mL Omnipaque-350 intravenous contrast timed to evaluate the pulmonary arteries. Coronal maximum intensity projection 3D-reconstructions were created by the technologist. The dose-length product (DLP) was 200.02 mGy-cm. Automated exposure control and iterative reconstruction technique were employed. COMPARISON: 08/01/2021 FINDINGS: The pulmonary arteries are well-opacified. No pulmonary embolism is identified. There is ab rupt cut off of the pulmonary arteries of the right upper lobe, consistent with chronic occlusion. Th ere is chronic collapse of the right upper lobe. There is unchanged right perihilar soft tissue densi ty extending into the right upper mediastinum. There has been interval insertion of an esophageal thalia nt. There are patchy airspace opacities inferiorly in the right lower lobe. Previously seen left lowe r lobe opacities have resolved. There is no pleural effusion or pneumothorax. The heart size is carol l. A gastrostomy tube is noted. There is moderate thoracic spondylosis. IMPRESSION: 1. No pulmonary embolus identified. 2. Chronic right upper lobe collapse with stable right perihilar soft tissue density centered in the right upper mediastinum, consistent with primary bronchogenic carcinoma and/or sequela of radiation t reatment. 3. Interval esophageal stent placement. 4. Improved left lower lobe airspace opacities and new groundglass opacities of the right lower lobe, possibly evolving COVID pneumonia. Reviewed, dictated and finalized at location F. DULE HANGER IMPRESSION: 1. No pulmonary embolus identified. 2. Chronic right upper lobe collapse with stable right perihilar soft tissue de nsity centered in the right upper mediastinum, consistent with primary bronchog enic carcinoma and/or sequela of radiation treatment. 3. Interval esophageal stent placement. 4. Improved left lower lobe airspace opacities and new groundglass opacities of the right lower lobe, possibly evolving COVID pneumonia.
--- NOTE | 2021-08-15 20:56 | ED.SOB ---
HPI - SOB/Dyspnea General Chief Complaint: Shortness of Breath/Dyspnea Stated Complaint: AMB Source: patient, family, EMS and RN notes reviewed Mode of arrival: EMS Limitations: no limitations History of Present Illness HPI Narrative: patient has a history of lung cancer, COPD, asthma. She was recently at [facility] in [place] for pneumonia three days ago. She states that she was just short of breath 3 days ago when she was discharged as she is now. She was sent home on amoxicillin. She was negative for COVID. MD elicited complaint: shortness of breath Pertinent past history: COPD and pneumonia Onset (ago): day(s) (3) Context: recent illness Timing: constant Severity: severe Exacerbating factors: nothing Relieving factors: nothing Known history of: COPD, asthma and recurrent pneumonia Associated symptoms: pain with inspiration and chest congestion Related Data Home oxygen amount: none Home Medications Medication Instructions Recorded Confirmed albuterol sulfate 2 puff INHALATION PRN 07/09/19 08/16/21 atorvastatin 10 mg PO DAILY 07/09/19 08/16/21 levothyroxine 125 mcg PO DAILY 07/09/19 08/16/21 montelukast 10 mg PO DAILY 07/09/19 08/16/21 paroxetine HCl 40 mg PO HS 07/09/19 08/16/21 cyanocobalamin (vitamin B-12) 1,000 mcg SUBLINGUAL DAILY 04/29/21 08/16/21 diltiazem HCl 60 mg PO TID 04/29/21 08/16/21 fluticasone propionate 1 spray INTRANASAL DAILY 04/29/21 08/16/21 pantoprazole 40 mg PO BID 04/29/21 08/16/21 umeclidinium-vilanterol 1 inh INHALATION DAILY 04/29/21 08/16/21 Allergies Allergy/AdvReac Type Severity Reaction Status Date / Time erythromycin base AdvReac Palpitation Verified 06/29/21 19:48 s tramadol AdvReac Vomiting Verified 06/29/21 19:48 Review of Systems Review of Systems: All systems reviewed & are unremarkable except as noted in HPI and below Constitutional: Constitutional: Denies chills, Denies fever(s) and Reports weakness Cardiovascular: Cardiovascular: Denies chest pain Respiratory: Respiratory: Reports as per HPI Gastrointestinal: Gastrointestinal: Denies diarrhea, Denies nausea and Denies vomiting PMFSH Past Medical History Medical History Anxiety Asthma COPD (chronic obstructive pulmonary disease) Hypertension Hypothyroidism Osteoarthritis Surgical History Surgical History History of lung biopsy Hx of cataract surgery Social History Social History Smoking status: Former smoker Alcohol intake: former Substance use: never Substance use type: does not use Gender identity (if verbalized by the patient): Female Spiritual care concerns: No Exam Const: General: no acute distress, alert and ill appearing chronically Nutritional Appearance: well nourished and thin Orientation/consciousness: patient oriented x3 HENMT: Head: normal to inspection Ears: external ears normal Face and sinus: normal facial exam Mouth: Yes moist mucous membranes Eyes: Conjunctivae: conjunctivae normal Pupils: Equal, round and reactive pupils present EOM: EOMs intact bilaterally Neck: Neck: normal visual inspection Resp: Effort & Inspection: normal respiratory effort Auscultation: rhonchi throughout Other: Right upper lobe posteriorly has increased volume of air as if hollow. Cardio: Rate: regular rate and tachycardic GI: GI Palp: Yes Soft to palpation and No Tenderness to palpation present (GI) Auscultation: normal bowel sounds Back/Spine/Pelvis: Cervical Spine: cervical ROM normal Thoracic/Lumbar Spine: thoraco-lumbar ROM normal Skin: General skin exam: normal color Rashes: no rashes Neuro: General: moves all extremities, no meningeal signs, no focal motor deficits and CN's II-XI intact bilaterally Speech: normal speech Gait exam (Neuro): Normal gait present Extrem: General: normal to i
[2021-08-15 21:24] LABS: Basophils Absolute Auto 0.05 K/mm3 (0.00-0.10); Basophils Percent Auto 0.4 % (0.0-1.0); Eosinophils Absolute Auto 0.11 K/mm3 (0.02-0.50); Hematocrit 31.1 % (35.0-42.0); Hemoglobin 10.5 g/dL (11.7-13.8); Immature Granulocyte Absolute 0.06 K/mm3 (0.00-0.00); Immature Granulocyte Percent A 0.5 % (0.0-0.0); Lymphocytes Absolute Auto 1.06 K/mm3 (1.10-4.50); Lymphocytes Percent Auto 9.4 % (18.0-42.0); Mean Corpuscular HGB Conc 33.8 g/dL (32.0-36.0); Mean Corpuscular Hemoglobin 31.2 pg (27.0-31.0); Mean Corpuscular Volume 92.3 fL (78.0-102.0); Mean Platelet Volume 8.7 fl (9.2-11.8); Monocytes Absolute Auto 1.32 K/mm3 (0.10-0.90); Monocytes Percent Auto 11.7 % (2.0-11.0); Neutrophils Absolute Auto 8.7 K/mm3 (1.7-7.2); Platelet Count Result 386 K/mm3 (150-420); Red Blood Count 3.37 M/mm3 (4.20-5.40); Red Cell Distribution Width 14.9 % (11.6-14.4); White Blood Count 11.3 K/mm3 (4.8-10.8)
[2021-08-15 21:26] VITALS: BP 140/82; PULSE 113; RESP 24; TEMP 36.9; O2SAT 96; O2SAT 98
--- NOTE | 2021-08-15 21:34 | PC.NURSE ---
Patient refused ABG at this time.
[2021-08-15 21:54] LABS: INR 1.1; Prothrombin Time 11.7 Seconds (9.50-12.10)
[2021-08-15 22:00] LABS: Alanine Aminotransferase 27 U/L (14-59); Albumin Level 2.3 g/dL (3.4-5.0); Alkaline Phosphatase 137 U/L (46-116); Anion Gap 11 mmol/L (8-16); Aspartate Amino Transferase 18 U/L (15-37); Bilirubin,Total 0.4 mg/dL (0.00-1.00); Blood Urea Nitrogen 14 mg/dL (7-18); Calcium 8.9 mg/dL (8.5-10.1); Carbon Dioxide 26 mmol/L (21-32); Chloride 92 mmol/L (98-108); Estimated CRCL calculation 54 ml/min; Estimated Glomerular Filt Rate > 60; Glucose 126 mg/dL (70-99); Magnesium 1.8 mg/dL (1.8-2.4); NT Pro B Type Natriuretic Pept 258 pg/mL (0-450); Osmolality Calculated 270 mOsm/kg (285-295); Potassium 4.3 mmol/L (3.5-5.1); Sodium 129 mmol/L (136-145); Total Protein 7.2 g/dL (6.4-8.2)
[2021-08-15 22:11] LABS: D Dimer 1.76 mg/L (0.19-0.50)
--- NOTE | 2021-08-15 22:45 | PC.NURSE ---
Patient resting comfortably awaiting test results. call light within reach and no concerns or needs at this time.
--- NOTE | 2021-08-15 23:45 | PC.NURSE ---
Patient taken to CT for CTA, awaiting results at this time. RN updated family on plan of care and patient's daughter brought back to sit with patient at bedside. no questions or concerns at this time.
[2021-08-16] VITALS (8 sets, daily range): BP systolic 140–157; BP diastolic 80–86; PULSE 74–88; RESP 16–20; TEMP 36.1; O2SAT 94–99; BMI 24.1
--- NOTE | 2021-08-16 00:45 | PC.NURSE ---
Patient assisted to bedside commode with standby assist. Patient aware of pending radiology scan.
--- NOTE | 2021-08-16 01:22 | PC.NURSE ---
Patient and family updated on plan to admit patient for COPD exacerbation.
--- NOTE | 2021-08-16 02:27 | ADMGEN ---
This patient, Priscila Birmingham, was admitted to 2nd Floor Room 202-2. Patient/family oriented to hospital policies and general routines including ID bracelet, bed and alarms, visiting hours, pain management, procedures, bathroom and other care routines, personal items, smoking policy, room service/diet, and visiting hours. Information on how to activate the Rapid Response Team has been discussed. Patient/Family are encouraged to report perceived risks to care and to ask questions if they do not understand what they are told or what they should do.
--- NOTE | 2021-08-16 02:47 | PC.NURSE ---
Patient stated she had swallowing eval completed at [facility] in [place]. G-tube is for supplemental feedings 3x a day. cannot recall name of supplement. Diet otherwise is pureed due to spread of cancer to esophagus. Patient left [facility] on on August 12 and has been increasingly short of breath. Is not on 02 at home and does not have 02 equipment. Patient lives alone with family checking in on her.
--- NOTE | 2021-08-16 04:12 | PC.NURSE ---
Patient appears to be resting. respirations regular and even. Loose cough present call light in reach.
[2021-08-16] MEDS: IPRATROPIUM 0.5 MG/ALBUTEROL SULFATE 2.5 MG AMPUL.NEB 3 ML INHALATION (05:36)
[2021-08-16 06:00] LABS: Basophils Absolute Auto 0.01 K/mm3 (0.00-0.10); Basophils Percent Auto 0.1 % (0.0-1.0); Hematocrit 32.6 % (35.0-42.0); Hemoglobin 10.6 g/dL (11.7-13.8); Immature Granulocyte Absolute 0.05 K/mm3 (0.00-0.00); Immature Granulocyte Percent A 0.6 % (0.0-0.0); Lymphocytes Absolute Auto 0.48 K/mm3 (1.10-4.50); Lymphocytes Percent Auto 5.4 % (18.0-42.0); Mean Corpuscular HGB Conc 32.5 g/dL (32.0-36.0); Mean Corpuscular Hemoglobin 30.5 pg (27.0-31.0); Mean Corpuscular Volume 93.7 fL (78.0-102.0); Mean Platelet Volume 9.2 fl (9.2-11.8); Monocytes Percent Auto 1.1 % (2.0-11.0); Neutrophils Absolute Auto 8.3 K/mm3 (1.7-7.2); Neutrophils Percent Auto 92.8 % (50.0-70.0); Platelet Count Result 430 K/mm3 (150-420); Red Blood Count 3.48 M/mm3 (4.20-5.40); Red Cell Distribution Width 14.9 % (11.6-14.4)
[2021-08-16 06:14] LABS: Anion Gap 10 mmol/L (8-16); Blood Urea Nitrogen 11 mg/dL (7-18); Calcium 9.2 mg/dL (8.5-10.1); Carbon Dioxide 28 mmol/L (21-32); Chloride 95 mmol/L (98-108); Estimated Glomerular Filt Rate > 60; Glucose 147 mg/dL (70-99); Osmolality Calculated 278 mOsm/kg (285-295); Potassium 5.1 mmol/L (3.5-5.1); Sodium 133 mmol/L (136-145)
--- NOTE | 2021-08-16 08:18 | HOMEO2EVAL ---
Evaluation was performed at [facility] Home Oxygen Evaluation RC: Home Oxygen (O2) Evaluation Start: 08/16/21 07:23 Freq: ONCE Status: Active Protocol: RPE Activity Type Activity Date Activity User E-Sign Co-Sign Detail Recorded Client Recorded Date Recorded By Document 08/16/21 07:30 SJDerrell [id number] 08/16/21 08:18 SJB Document 08/16/21 07:36 SJB [id number] 08/16/21 08:18 SJB 08/16/21 08/16/21 07:30 07:36 Home O2 Evaluation Test Phase Resting Exercise Oxygen Delivery Room Air Room Air Pulse Oximetry (90-100 %) 96 95 Pulse Rate (60-100 beats/min) 74 84 Activity Tolerance Good Rating of Perceived Dyspnea (PD) +2 Mild, Some Difficulty, Noticeable to the Observer Rate of Perceived Exertion (PE) 12 Ambulation Distance (feet) 425 Ambulation Distance (meters) 129.53 Home Oxygen Evaluation Comments Will begin Pt walked exercise now. pushing w/c on room air. Jorge well, educated/ encouraged PLB. Sp02s remained 95% and above throughout walk and HR averaged 84. Treatment Charges O2 Evaluation - Outpatient
[2021-08-16] MEDS: methylPREDNISolone SOD SUCC 125 MG VIAL IV PUSH (08:54)
[2021-08-16] MEDS: MONTELUKAST SODIUM 10 MG TABLET PO (10:02)
[2021-08-16] MEDS: PANTOPRAZOLE 40 MG TABLET PO (10:02)
[2021-08-16] MEDS: ATORVASTATIN 10 MG TABLET PO (10:02)
[2021-08-16] MEDS: LEVOTHYROXINE SODIUM 100 MCG, LEVOTHYROXINE SODIUM 25 MCG 125 MCG PO (10:02)
[2021-08-16] MEDS: dilTIAZem HCL 30 MG TABLET 60 MG PO (10:03)
[2021-08-16] MEDS: UMECLIDINIUM/VILANTEROL 62.5-25 MCG ELLIPTA 1 PUFF INHALATION (10:03)
--- NOTE | 2021-08-16 10:27 | PM.SD2 ---
Same Day Admit/Disch: HPI History of Present Illness Chief complaint: COPD EXCERBATION <LUIS MIGUEL Monson - Last Filed: 08/19/21 14:37> Narrative: Priscila Birmingham is a 76 year old female that presented to emergency room with complaints of shortness of breath. Patient has a past medical history of anxiety, asthma, COPD, hypertension, hypothyroidism and osteoarthritis. According to patient she was recently discharged from [facility] due to pneumonia. Patient was discharged home on antibiotic treatment p.o. patient notes her condition worsen after discharge. Vital signs 96.8, 88, 18, 97, 157/86, WBCs 11.3, hemoglobin 10.5, hematocrit 31.1, platelets 386, D-dimer 1.76, sodium 129, potassium 4.3, BUN 14, creatinine 0.58, glucose 126, lactic acid 1.0, magnesium 1.8, AST 88 ALT 27 alkaline phosphatase 137, CTA does not indicate possible evolving COVID-pneumonia, EKG sinus tach with a heart rate of 101. Patient being admitted for COPD exacerbation <LUIS MIGUEL Monson - Last Filed: 08/19/21 14:37> [facility] Past Medical History Medical History: Medical History (Updated 08/17/21 @ 13:56 by LUIS MIGUEL Monson) Anxiety Asthma COPD (chronic obstructive pulmonary disease) Hypertension Hypothyroidism Osteoarthritis <LUIS MIGUEL Monson - Last Filed: 08/19/21 14:37> Surgical History Surgical History: Surgical History History of lung biopsy Hx of cataract surgery <LUI SMIGUEL Monson - Last Filed: 08/19/21 14:37> Social History Social History: Social History Smoking status: Former smoker Alcohol intake: former Substance use: never Substance use type: does not use Gender identity (if verbalized by the patient): Female Spiritual care concerns: No <LUIS MIGUEL Monson - Last Filed: 08/19/21 14:37> Same Day Admit/Disch: Med Pre-admit Medications Home Medications: Home Medications Medication Instructions Recorded Confirmed Type albuterol sulfate 2 puff INHALATION PRN 07/09/19 08/16/21 History atorvastatin 10 mg PO DAILY 07/09/19 08/16/21 History levothyroxine 125 mcg PO DAILY 07/09/19 08/16/21 History montelukast 10 mg PO DAILY 07/09/19 08/16/21 History paroxetine HCl 40 mg PO HS 07/09/19 08/16/21 History cyanocobalamin (vitamin B-12) 1,000 mcg SUBLINGUAL DAILY 04/29/21 08/16/21 History diltiazem HCl 60 mg PO TID 04/29/21 08/16/21 History fluticasone propionate 1 spray INTRANASAL DAILY 04/29/21 08/16/21 History pantoprazole 40 mg PO BID 04/29/21 08/16/21 History umeclidinium-vilanterol 1 inh INHALATION DAILY 04/29/21 08/16/21 History azithromycin 500 mg PO DAILY 7 Days #7 tablet 08/16/21 Rx prednisone 20 mg PO DAILY #21 tablet 08/16/21 Rx cefdinir 300 mg PO Q12H 7 Days #84 ml 08/17/21 Rx <Daniel Shankar, TRESTLE MECHANIC-C - Last Filed: 08/19/21 14:37> Exam Narrative: GENERAL: This is a well-nourished, well-developed patient, in no apparent distress. HEAD: normocephalic, atraumatic. EYES: PERRL. Sclera clear/white. Vision is grossly intact. EARS: External ears normal, auditory canals clear and without drainage, TMs normal without perforation. Hearing grossly intact. NOSE: External nose normal with no obvious nasal discharge, nares without redness, no rhinorrhea. THROAT: Mucous membranes moist, posterior pharynx clear. NECK: Neck supple, non-tender without lymphadenopathy, masses or thyromegaly. CARDIOVASCULAR: Regular rate and rhythm without murmurs, gallops, or rubs. RESPIRATORY: Diminished but improved from previous day GASTROINTESTINAL: Abdomen soft, non-tender, nondistended. Bowel sounds are active. No hepato-splenomegaly, or palpable masses. No guarding. SKIN: warm, intact with no suspicious lesions or rash, good texture and turgor. NEURO: awake, alert, and oriented to person, place and time. There were no obvious focal neurologic abnormalities. Steady gait
--- NOTE | 2021-08-16 12:00 | PC.NURSE ---
All discharge instructions and education reviewed with patient. Patient states understanding. Patient denies any questions at this time. IV site removed, tip intact, dressing applied to site. Patient assisted to gather belongings to take home, home medications returned to patient. Patient accompanied to front door via wheelchair by this nurse. Patient left via private vehicle with son.
== END 2021-08-16 12:00 | disposition home or self-care (01) ==
LOC: CHSED 08-16 00:58 → CHS2ND 08-16 06:30
PROVIDERS: Admitting Provider Emergency Medicine; Emergency Provider Emergency Medicine; PCP Internal Medicine; Visit Provider Emergency Medicine
DX: J44.9 Chronic obstructive pulmonary disease, unspecified (principal); C34.90 Malignant neoplasm of unspecified part of unspecified bronchus or lung; I10 Essential (primary) hypertension; E03.9 Hypothyroidism, unspecified; M19.90 Unspecified osteoarthritis, unspecified site; E87.1 Hypo-osmolality and hyponatremia; R79.89 Other specified abnormal findings of blood chemistry; F41.9 Anxiety disorder, unspecified
CPT/HCPCS: 36415; 36600; 71046; 71275; 80048; 80053; 82805; 83605; 83735; 83880; 85025; 85380; 85610; 87040; 94618; 94640; 96365; 96375; 99285; A9270; G0378; J0696; J2930; Q9967

== ENCOUNTER 2021-09-08 01:29 | Observation (INO) | payer MEDICARE, SELFPAY ==
[2021-09-08] VITALS (22 sets, daily range): BP systolic 105–186; BP diastolic 60–109; PULSE 67–110; RESP 16–28; TEMP 36.3–36.6; O2SAT 88–99; BMI 24.5
--- NOTE | ~2021-09-08 | XR_ITS ---
EXAMINATION: XR chest 1V portable DATE: 09/08/2021 02:35 INDICATION: Shortness of breath. Lung cancer. TECHNIQUE: A single frontal view of the chest was obtained. COMPARISON: Chest 2 views 08/15/2021, chest CT 08/15/2021, 04/20/2017 FINDINGS: There are airspace opacities in right upper lobe and perihilar right lung with volume loss, consistent with radiation pneumonitis and atelectasis. There is mild atelectasis in left lower lung zone. No pleural effusion or pneumothorax. The heart size is normal. An esophageal stent is noted. Th ere is a gastrostomy tube in expected position. IMPRESSION: 1. Stable airspace opacities with volume loss involving right upper lobe and perihilar right lung, co nsistent with radiation pneumonitis and atelectasis. 2. Mild atelectasis in left lower lung zone. Reviewed, dictated and finalized at location E. ERCIAL FLOOR COVERING INSTALLER IMPRESSION: 1. Stable airspace opacities with volume loss involving right upper lobe and pe rihilar right lung, consistent with radiation pneumonitis and atelectasis. 2. Mild atelectasis in left lower lung zone.
--- NOTE | 2021-09-08 01:34 | ED.SOB ---
HPI - SOB/Dyspnea General Chief Complaint: Shortness of Breath/Dyspnea Stated Complaint: SHORTNESS OF BREATH Time Seen by Provider: 09/08/21 01:34 Source: patient Limitations: no limitations History of Present Illness HPI Narrative: 26-year-old female, ex-smoker diagnosed with stage IV lung cancer in 2006 he is status post chemo/RT, COPD,esophageal stent, hypothyroidism, osteoarthritis was diagnosed with pneumonia 08/13/2021 and admitted in [facility]. She was noted to be in AFib and was started on oral Eliquis. She was discharged home on amoxicillin. she presents to the ER with -- worsening shortness breath for the past few days. The patient was noted to be hypoxic for which she was placed on 2 L of supplemental oxygen. -- Nonproductive cough -- bilateral wheezing the patient denied any fever or chills. The patient denied any pleuritic chest pain. -- History of esophageal involvement status post esophageal stent. The patient eats pureed diet in addition to 200 mL of tube feeds via her G-tube. MD elicited complaint: shortness of breath and cough Pertinent past history: COPD and asthma Onset (ago): day(s) ( Seven days) Context: recent illness and anxiety Severity: severe Exacerbating factors: exertion Relieving factors: nothing Known history of: COPD and other ( lung cancer) Associated symptoms: denies other symptoms Treatment prior to arrival: oxygen, bronchodilator and other ( Solu-Medrol 125) Related Data Home oxygen amount: none Home Medications Medication Instructions Recorded Confirmed albuterol sulfate 2 puff INHALATION PRN 07/09/19 09/08/21 atorvastatin 10 mg PO DAILY 07/09/19 09/08/21 levothyroxine 125 mcg PO DAILY 07/09/19 09/08/21 montelukast 10 mg PO DAILY 07/09/19 09/08/21 paroxetine HCl 40 mg PO HS 07/09/19 09/08/21 diltiazem HCl 60 mg PO TID 04/29/21 09/08/21 fluticasone propionate 1 spray INTRANASAL DAILY 04/29/21 09/08/21 pantoprazole 40 mg PO BID 04/29/21 09/08/21 umeclidinium-vilanterol 1 inh INHALATION DAILY 04/29/21 09/08/21 apixaban [Eliquis] 5 mg PO DIRECTED 09/08/21 09/08/21 Allergies Allergy/AdvReac Type Severity Reaction Status Date / Time erythromycin base AdvReac Palpitation Verified 09/08/21 01:37 s tramadol AdvReac Vomiting Verified 09/08/21 01:37 Review of Systems Review of Systems: All systems reviewed & are unremarkable except as noted in HPI and below Constitutional: Constitutional: Reports as per HPI, Reports fatigue and Reports weakness Eyes: Eyes: Reports as per HPI and Reports no additional eye complaints ENT: Reports system reviewed and no additional complaints, except as documented and Reports as per HPI Cardiovascular: Cardiovascular: Reports as per HPI and Reports no additional cardiovascular complaints Respiratory: Respiratory: Reports chest congestion, Reports cough, Reports dyspnea and Reports wheezing Gastrointestinal: Gastrointestinal: Reports as per HPI and Reports no additional gastrointestinal complaints Genitourinary: Genitourinary: Reports no additional female genitourinary complaints Musculoskeletal: Musculoskeletal: Reports no additional musculoskeletal complaints Integumentary/Breasts: Skin/Breast: Reports system reviewed and no additional complaints, except as docu Neurologic: Reports system reviewed and no additional complaints, except as documented Psychiatric: Psychiatric: Reports anxiety Endocrine: Endocrine: Reports no additional endocrine complaints Hematologic/Lymphatic: Hematologic/Lymphatic: Reports no additional hematologic/lymphatic complaints Allergic/Immunologic: Allergic/Immunologic: Reports no additional allergic/immunologic complaints [facility] Past Medical History Medical History Anxiety Asthma COPD (chronic obstructive pulmonary disease) Hypertension Hypothyroidism Non-small cell lung cancer Osteoarthritis Surgical History Surgical History (Revi
--- NOTE | 2021-09-08 01:37 | ECG_ITS ---
Measurements Intervals [place] Rate: 106 P: 72 WV: 168 QRS: -47 QRSD: 101 T: 67 QT: 305 QTc: 406 Interpretive Statements SINUS TACHYCARDIA INCOMPLETE RIGHT BUNDLE BRANCH BLOCK LEFT ANTERIOR FASCICULAR BLOCK BASELINE ARTIFACT- I, II, III, AVR, AVL, AVF, V1-V6 ABNORMAL ECG Electronically Signed On 09-08-2021 7:34:13 IT CORPORATE RECRUITER by Darrian Fitch D.O.
[2021-09-08] MEDS: IPRATROPIUM 0.5 MG/ALBUTEROL SULFATE 2.5 MG AMPUL.NEB 3 ML (01:42)
[2021-09-08 01:51] LABS: Basophils Absolute Auto 0.04 K/mm3 (0.00-0.10); Basophils Percent Auto 0.5 % (0.0-1.0); Eosinophils Absolute Auto 0.27 K/mm3 (0.02-0.50); Eosinophils Percent Auto 3.5 % (1.0-6.0); Hematocrit 34.1 % (35.0-42.0); Hemoglobin 11.4 g/dL (11.7-13.8); Immature Granulocyte Absolute 0.02 K/mm3 (0.00-0.00); Immature Granulocyte Percent A 0.3 % (0.0-0.0); Lymphocytes Absolute Auto 1.38 K/mm3 (1.10-4.50); Lymphocytes Percent Auto 17.8 % (18.0-42.0); Mean Corpuscular HGB Conc 33.4 g/dL (32.0-36.0); Mean Corpuscular Hemoglobin 31.8 pg (27.0-31.0); Mean Corpuscular Volume 95.3 fL (78.0-102.0); Mean Platelet Volume 8.8 fl (9.2-11.8); Monocytes Percent Auto 10.3 % (2.0-11.0); Neutrophils Absolute Auto 5.2 K/mm3 (1.7-7.2); Neutrophils Percent Auto 67.6 % (50.0-70.0); Platelet Count Result 314 K/mm3 (150-420); Red Blood Count 3.58 M/mm3 (4.20-5.40); Red Cell Distribution Width 16.9 % (11.6-14.4); White Blood Count 7.7 K/mm3 (4.8-10.8)
[2021-09-08 02:05] LABS: Partial Thromboplastin Time 29.2 SEC (23.90-30.70)
[2021-09-08 02:06] LABS: INR 1.1; Prothrombin Time 11.5 Seconds (9.50-12.10)
[2021-09-08 02:08] LABS: D Dimer 1.21 mg/L (0.19-0.50)
[2021-09-08 02:10] LABS: Lactic Acid Reflex 0.8 mmol/L (0.4-2.0)
[2021-09-08 02:12] LABS: Alanine Aminotransferase 19 U/L (14-59); Albumin Level 2.7 g/dL (3.4-5.0); Alkaline Phosphatase 134 U/L (46-116); Anion Gap 11 mmol/L (8-16); Aspartate Amino Transferase 11 U/L (15-37); Bilirubin,Total 0.2 mg/dL (0.00-1.00); Blood Urea Nitrogen 14 mg/dL (7-18); Calcium 8.6 mg/dL (8.5-10.1); Carbon Dioxide 26 mmol/L (21-32); Chloride 97 mmol/L (98-108); Estimated Glomerular Filt Rate > 60; Glucose 142 mg/dL (70-99); NT Pro B Type Natriuretic Pept 173 pg/mL (0-450); Osmolality Calculated 280 mOsm/kg (285-295); Potassium 3.6 mmol/L (3.5-5.1); Sodium 134 mmol/L (136-145); Total Protein 7.2 g/dL (6.4-8.2)
[2021-09-08 02:13] LABS: Troponin I 10.1 ng/L (0.00-60.4)
[2021-09-08] MEDS: ALBUTEROL SULFATE NEB 2.5 MG/3 ML INH 20 MG INHALATION (02:15)
[2021-09-08 02:30] LABS: Influenza Control Valid (Valid)
[2021-09-08 03:29] LABS: SARS-CoV-2 RNA PCR Negative (Negative)
--- NOTE | 2021-09-08 04:16 | PC.NURSE ---
Pt to be a puree diet and flush G-tube with 200mLs of water per ERP Dr. Santamaria.
--- NOTE | 2021-09-08 04:30 | ADMGEN ---
This patient, Priscila Birmingham, was admitted to 2nd Floor Room 207-1. Patient/family oriented to hospital policies and general routines including ID bracelet, bed and alarms, visiting hours, pain management, procedures, bathroom and other care routines, personal items, smoking policy, room service/diet, and visiting hours. Information on how to activate the Rapid Response Team has been discussed. Patient/Family are encouraged to report perceived risks to care and to ask questions if they do not understand what they are told or what they should do.
[2021-09-08] MEDS: LEVOTHYROXINE SODIUM 25 MCG TABLET PO (06:30)
[2021-09-08] MEDS: LEVOTHYROXINE SODIUM 100 MCG TABLET PO (06:30)
[2021-09-08 09:44] LABS: Add Urine Microscopic? YES; Appearance Urine Clear (Clear); Bilirubin Urine Negative (Negative); Blood Urine 3+ (Negative); Color Urine Light Yellow (Yellow); Glucose Urine UA Negative (Negative); Ketones Urine Negative (Negative); Leukocyte Esterase Ur Negative (Negative); Nitrate Urine Negative (Negative); Protein Urine Negative (Negative); Urobilinogen Urine 0.2 mg/dL (0.2-1.0)
[2021-09-08] MEDS: dilTIAZem HCL 30 MG TABLET 60 MG PO ×3 (09:45→18:07)
[2021-09-08] MEDS: methylPREDNISolone SOD SUCC 40 MG VIAL IV PUSH ×3 (09:45→18:06)
[2021-09-08] MEDS: PANTOPRAZOLE 40 MG TABLET PO (09:46)
[2021-09-08] MEDS: APIXABAN 2.5 MG TABLET 5 MG PO ×2 (09:46→18:08)
[2021-09-08] MEDS: AMOXICILLIN/CLAVULANATE K 875-125 MG TAB 1 TABLET PO ×2 (09:46→21:35)
[2021-09-08] MEDS: MONTELUKAST SODIUM 10 MG TABLET PO (09:46)
[2021-09-08] MEDS: ATORVASTATIN 10 MG TABLET PO (09:46)
[2021-09-08 09:51] LABS: Squamous Epithelial Cell Urine Few /hpf (Few); WBC Urine 0-3 /hpf (0-3)
[2021-09-08 09:52] LABS: Bacteria Urine Trace /hpf; Mucus Urine Few /lpf
--- NOTE | 2021-09-08 09:56 | PM.IMHP ---
H&P: HPI History of Present Illness Date/Time: 09/08/21 09:56 76-year-old shortness of breath. Patient states that she s going to stop smoking today as I reviewed her chart she has been diagnosed with stage IV lung cancer in 2006 she is status post chemo/RT, COPD,esophageal stent, hypothyroidism, osteoarthritis. Patient was admitted to [facility] on 08/13/2021 for Pneumonia. Patient remains on Eliquis as she has a history of AFib. Mrs. Birmingham was was discharged home on amoxicillin we will place her on Augmentin. Mrs. Birmingham has come to floor on 4l of oxygen nasal cannula with a nonproductive cough with bilateral wheezes. . According to patient she eats pureed food as well as she gets feeding via GTube . worsening shortness breath for the past few days. The patient was noted to be hypoxic for which she was placed on 2 L of supplemental oxygen. Chief Complaint: Hypoxia, Shortness of breath, H/o Lung Cancer Review of Systems Review of Systems: Lung course with wheezing and coughing ABD: Gtube in place in lower quad All systems reviewed & are unremarkable except as noted in HPI and below PMFSH Past Medical History Medical History Anxiety Asthma COPD (chronic obstructive pulmonary disease) Hypertension Hypothyroidism Non-small cell lung cancer Osteoarthritis Surgical History Surgical History History of lung biopsy Hx of cataract surgery Social History Social History Smoking packs per day: 1 Smoking cigarettes per day: 20.0 Years smoked: 63 Smoking pack-years: 63.00 Smoking status: Current every day smoker Tobacco type: cigarettes Alcohol intake: never Substance use: never Substance use type: does not use Gender identity (if verbalized by the patient): Female Spiritual care concerns: Yes (Nondenominational) Meds Home Medications and Allergies Home Medications Medication Instructions Recorded Confirmed Type albuterol sulfate 2 puff INHALATION PRN 07/09/19 09/08/21 History atorvastatin 10 mg PO DAILY 07/09/19 09/08/21 History levothyroxine 125 mcg PO DAILY 07/09/19 09/08/21 History montelukast 10 mg PO DAILY 07/09/19 09/08/21 History paroxetine HCl 40 mg PO HS 07/09/19 09/08/21 History diltiazem HCl 60 mg PO TID 04/29/21 09/08/21 History fluticasone propionate 1 spray INTRANASAL DAILY 04/29/21 09/08/21 History pantoprazole 40 mg PO BID 04/29/21 09/08/21 History umeclidinium-vilanterol 1 inh INHALATION DAILY 04/29/21 09/08/21 History apixaban [Eliquis] 5 mg PO DIRECTED 09/08/21 09/08/21 History Allergies Allergy/AdvReac Type Severity Reaction Status Date / Time erythromycin base AdvReac Palpitation Verified 09/08/21 01:37 s tramadol AdvReac Vomiting Verified 09/08/21 01:37 Vital Signs Vital Signs - 24 hr 09/08/21 01:30 09/08/21 01:35 09/08/21 01:42 Temperature 97.9 F Pulse Rate 106 H 109 H 98 Respiratory Rate 26 H 24 H Blood Pressure 179/78 H Pulse Oximetry 88 L 92 09/08/21 01:45 09/08/21 01:57 09/08/21 02:01 Temperature Pulse Rate 102 H 106 H 107 H Respiratory Rate 25 H 24 H 28 H Blood Pressure 142/89 H 174/102 H Pulse Oximetry 97 92 92 09/08/21 02:15 09/08/21 02:16 09/08/21 02:30 Temperature Pulse Rate 110 H 105 H 103 H Respiratory Rate 26 H 24 H 26 H Blood Pressure 186/109 H 152/99 H Pulse Oximetry 97 94 99 09/08/21 02:51 09/08/21 03:00 09/08/21 03:48 Temperature Pulse Rate 103 H 100 104 H Respiratory Rate 24 H 28 H 24 H Blood Pressure 159/91 H 132/69 Pulse Oximetry 97 97 09/08/21 04:00 09/08/21 04:15 09/08/21 08:00 Temperature 98 F 98 F Pulse Rate 98 98 102 H Respiratory Rate 19 16 18 Blood Pressure 105/66 128/78 123/70 Pulse Oximetry 90 98 95 Exam Narrative: GENERAL:Ill-appearing, frail acute distress. HEAD:Normocephalic, EYES: PERRLA ENT: Na
[2021-09-08] MEDS: IPRATROPIUM 0.5 MG/ALBUTEROL SULFATE 2.5 MG AMPUL.NEB 3 ML INHALATION ×2 (12:23→18:15)
[2021-09-08] MEDS: PARoxetine 20 MG TABLET 40 MG PO (21:35)
[2021-09-09] VITALS (12 sets, daily range): BP systolic 118–132; BP diastolic 68–78; PULSE 82–99; RESP 16–20; TEMP 36.8; O2SAT 97–99
[2021-09-09] MEDS: IPRATROPIUM 0.5 MG/ALBUTEROL SULFATE 2.5 MG AMPUL.NEB 3 ML INHALATION ×2 (00:49→05:33)
[2021-09-09 05:05] LABS: Hematocrit 28.8 % (35.0-42.0); Hemoglobin 9.3 g/dL (11.7-13.8); Mean Corpuscular HGB Conc 32.3 g/dL (32.0-36.0); Mean Corpuscular Hemoglobin 31.1 pg (27.0-31.0); Mean Corpuscular Volume 96.3 fL (78.0-102.0); Platelet Count Result 298 K/mm3 (150-420); Red Blood Count 2.99 M/mm3 (4.20-5.40); Red Cell Distribution Width 17.1 % (11.6-14.4)
[2021-09-09 05:19] LABS: Anion Gap 11 mmol/L (8-16); Blood Urea Nitrogen 15 mg/dL (7-18); Calcium 8.8 mg/dL (8.5-10.1); Carbon Dioxide 25 mmol/L (21-32); Chloride 100 mmol/L (98-108); Estimated Glomerular Filt Rate > 60; Glucose 136 mg/dL (70-99); Osmolality Calculated 284 mOsm/kg (285-295); Potassium 4.1 mmol/L (3.5-5.1); Sodium 136 mmol/L (136-145)
[2021-09-09] MEDS: LEVOTHYROXINE SODIUM 100 MCG TABLET PO (05:31)
[2021-09-09] MEDS: LEVOTHYROXINE SODIUM 25 MCG TABLET PO (05:31)
--- NOTE | 2021-09-09 08:14 | PM.DS ---
DS: Admitting Diagnosis Discharge Date 09/09/2021 Admitting Diagnosis COPD Exacerbation, Lung Cancer DS: Discharge Diagnosis Discharge Diagnosis (1) Acute exacerbation of chronic obstructive pulmonary disease: Code(s): J44.1 - Chronic obstructive pulmonary disease with (acute) exacerbation Status: Acute Assessment and Plan: --Duo nebs Q6 hours --IS while awake --Encourage smoking cessation --Follow up at the [facility] on Sunday --Monitor saturation (2) Lung cancer: Qualifiers: Laterality: unspecified laterality Lung location: unspecified part of lung Qualified Code(s): C34.90 - Malignant neoplasm of unspecified part of unspecified bronchus or lung Code(s): C34.90 - Malignant neoplasm of unspecified part of unspecified bronchus or lung Status: Acute Assessment and Plan: Follow up with [facility] on Sunday Smoking Cessation is important Nebulizer as ordered Discussed hospice care and patient declined (3) Anxiety: Code(s): F41.9 - Anxiety disorder, unspecified Status: Acute Assessment and Plan: Take medication daily as prescribed (4) Uses feeding tube: Code(s): Z97.8 - Presence of other specified devices Status: Acute Assessment and Plan: Make sure you are sitting upright at least 30 minutes after you are using Tube feeding If you are eating food you must stay upright as well you are risking Aspiration (5) Smoking: Code(s): F17.200 - Nicotine dependence, unspecified, uncomplicated Status: Acute Assessment and Plan: Smoking Cessation is Very Important DS: Summary Hospital Course Hospital Course: This is a 76 year old female that has been admitted with COPD Exacerbation with hyponatremia . Hyponatremia 136 has resolved. Patient has a history of lung cancer and has been smoking on a regular basis. Mrs. Birmingham has received IV steroid, Nebulizer treatment and breathing has continued to improve. Patient has improved and does have a cough although she is receiving radiation at the [facility] . Patient does not want hospice at this time and states she wants to be able to return to the hospital she is not going to suffocate at home. Mrs. Birmingham has a G-tube for feeding although she has been feeding herself some pureed or soft food such as ice cream. Patient continues to remain noncompliant with medication but informs me that she is going to start taking medication . Patient has been ordered a nebulizer at home and oral antibiotic to ensure that there is no infection. Patients tolerating feeding without difficulties some oral eating as well she will go home with some . Time Spent with Patient Time attestation: Total time spent providing and/or coordinating discharge services: Exam Const: General: cooperative, healthy appearing, comfortable, no acute distress, alert and awake Orientation/consciousness: oriented to person, oriented to place, oriented to time and patient oriented x3 HENMT: Head: normal to inspection, No palpable skull fracture present and atraumatic Ears: hearing grossly normal bilaterally Face and sinus: normal facial exam, sinuses nontender and face symmetric Mouth: Yes lip normal and Yes tongue normal Eyes: General: appearance normal, both eyes and all related structures Neck: Neck: normal visual inspection, full ROM, no lymphadenopathy and no JVD Chest: Chest palpation & inspection: normal inspection of the chest and normal palpation of entire chest wall Resp: Effort & Inspection: normal respiratory effort and able to speak in complete sentences Auscultation: diminished lung sounds Cardio: Jugular venous distension: no JVD Rate: regular rate Rhythm: regular rhythm GI: Inspection: normal to inspection GI Palp: Yes Soft to palpation and Yes Other GI palpation findings present (gtube in place left lower quad) Rectal Exam: deferred Other: Gtube lower quad left stomach is s
[2021-09-09] MEDS: ATORVASTATIN 10 MG TABLET PO (09:10)
[2021-09-09] MEDS: AMOXICILLIN/CLAVULANATE K 875-125 MG TAB 1 TABLET PO (09:10)
[2021-09-09] MEDS: methylPREDNISolone SOD SUCC 40 MG VIAL IV PUSH (09:10)
[2021-09-09] MEDS: MONTELUKAST SODIUM 10 MG TABLET PO (09:10)
[2021-09-09] MEDS: PANTOPRAZOLE SODIUM IV 40 MG VIAL IV PUSH (09:10)
[2021-09-09] MEDS: APIXABAN 2.5 MG TABLET 5 MG PO (09:41)
[2021-09-09] MEDS: dilTIAZem HCL 30 MG TABLET 60 MG PO (09:42)
--- NOTE | 2021-09-09 09:46 | PCPTNOTE ---
No Care Plan initiated due to patient being discharged today.
--- NOTE | 2021-09-09 14:08 | PC.NURSE ---
Pt discharged to home. Discharge instructions given to pt. Medication reviewed with pt. IV removed and dressing applied. Pt verbalized understanding off all instructions.
--- NOTE | 2021-09-12 11:44 | PC.NURSE ---
Pt states she received and understood her discharge instructions. Pt also states I;m very grateful we have this [facility] .
== END 2021-09-09 12:30 | disposition home health service (06) ==
LOC: CHSED 03:41 → CHS2ND 07:30
PROVIDERS: Nurse Practitioner Family; Admitting Provider Internal Medicine Critical Care Medicine; Emergency Provider Internal Medicine Critical Care Medicine; PCP Internal Medicine; Visit Provider Internal Medicine Critical Care Medicine
DX: J44.1 Chronic obstructive pulmonary disease with (acute) exacerbation (principal); J96.01 Acute respiratory failure with hypoxia; C34.90 Malignant neoplasm of unspecified part of unspecified bronchus or lung; E87.1 Hypo-osmolality and hyponatremia; I48.20 Chronic atrial fibrillation, unspecified; E03.9 Hypothyroidism, unspecified; M19.91 Primary osteoarthritis, unspecified site; R79.89 Other specified abnormal findings of blood chemistry; F41.9 Anxiety disorder, unspecified; Z79.01 Long term (current) use of anticoagulants; Z20.822 Contact with and (suspected) exposure to COVID-19; Z93.1 Gastrostomy status; Z92.3 Personal history of irradiation
CPT/HCPCS: 36415; 36600; 71045; 80048; 80053; 81001; 82805; 83605; 83880; 84484; 85025; 85027; 85380; 85610; 85730; 87804; 93005; 94640; 96374; 96375; 96376; 97161; 99285; A9270; C9113; C9803; G0378; J2920; U0003; U0005

== ENCOUNTER 2021-09-21 12:54 | Outpatient (CLI) | payer MEDICARE, SELFPAY ==
--- NOTE | ~2021-09-21 | XR_ITS ---
EXAMINATION: XR hand LT min 3V INDICATION: Left hand pain, initial encounter TECHNIQUE: Three views of the left hand are obtained. COMPARISON: None available FINDINGS: There is a comminuted fracture of the distal radius. There are 30 degrees of dorsal angulat ion at the fracture site. An ulnar styloid avulsion is noted. No fracture is identified in the hand o r carpal bones. There is advanced osteoarthritis of the triscaphe and first carpometacarpal joints. T here is moderate osteoarthritis of multiple interphalangeal joints. Soft tissue swelling is present i n the wrist and hand. IMPRESSION: 1. Fractures of the distal radius and ulna as described above. 2. No acute osseous abnormality of the hand. Reviewed, dictated and finalized at location A. C SOFTWARE DEVELOPER
--- NOTE | ~2021-09-21 | XR_ITS ---
EXAMINATION: XR wrist LT min 3V DATE: 09/21/2021 13:19 INDICATION: Left wrist pain, initial encounter TECHNIQUE: Posteroanterior, ulnar deviation, oblique, and lateral views of the left wrist were obtain ed. COMPARISON: None available FINDINGS: There is a comminuted fracture of the distal radius. There are 30 degrees of dorsal angulat ion at the fracture site. An ulnar styloid avulsion is noted. No fracture is identified in the hand o r carpal bones. There is advanced osteoarthritis of the triscaphe and first carpometacarpal joints. S oft tissue swelling is present in the wrist and hand. IMPRESSION: 1. Fractures of the distal radius and ulnar styloid as described above. Reviewed, dictated and finalized at location A. CTOR OF PRODUCT MARKETING
== END 2021-09-21 12:55 | disposition home or self-care (01) ==
LOC: CHSIMG 12:56
PROVIDERS: PCP Internal Medicine; Visit Provider Internal Medicine
DX: S69.92XA Unspecified injury of left wrist, hand and finger(s), initial encounter (principal); S52.502A Unspecified fracture of the lower end of left radius, initial encounter for closed fracture; S52.615A Nondisplaced fracture of left ulna styloid process, initial encounter for closed fracture
CPT/HCPCS: 73110; 73130

== ENCOUNTER 2021-09-22 12:55 | Observation (INO) | payer MEDICARE, SELFPAY ==
[2021-09-22] VITALS (15 sets, daily range): BP systolic 98–123; BP diastolic 64–83; PULSE 85–99; RESP 19–24; TEMP 36.3–37.1; O2SAT 80–98; BMI 23.3
--- NOTE | ~2021-09-22 | XR_ITS ---
EXAMINATION: XR chest 1V portable INDICATION: Shortness of breath, chronic cough TECHNIQUE: Portable AP chest at 1029 hours COMPARISON: 09/08/2021 FINDINGS: There is chronic collapse of the right upper lobe. There are patchy opacities of the right upper and left lower lung zones. There is no pleural effusion or pneumothorax. The heart size is norm al. An esophageal stent is noted. IMPRESSION: 1. Minimal opacities of the right upper lung zone and left lung base, consistent with atelectasis cassandra bryon pneumonia. Reviewed, dictated and finalized at location [facility] IMPRESSION: 1. Minimal opacities of the right upper lung zone and left lung base, consisten t with atelectasis versus pneumonia.
--- NOTE | 2021-09-22 13:06 | ECG_ITS ---
Measurements Intervals [place] Rate: 95 P: 82 HI: 180 QRS: -15 QRSD: 98 T: 93 QT: 343 QTc: 431 Interpretive Statements SINUS RHYTHM WITH SINUS ARRHYTHMIA INCOMPLETE RIGHT BUNDLE BRANCH BLOCK BORDERLINE ST-T WAVE ABNORMALITY- ANT/HIGH LAT LEADS BASELINE ARTIFACT- I, II, AVR, AVL BORDERLINE ECG Electronically Signed On 09-22-2021 14:06:10 COMPLAINT SUPERVISOR by Darrian Fitch D.O.
--- NOTE | 2021-09-22 13:10 | PC.NURSE ---
1255 call from adalgisa nichols, pt son, states pt had ct scan on sunday at [place]. showed lung tumor smaller, no pneumonia. stated pt had fall on sunday and has left wrist fracture. dr brownlee is to set /cast wrist at 1pm. dr almonte notified of same.
[2021-09-22] MEDS: IPRATROPIUM 0.5 MG/ALBUTEROL SULFATE 2.5 MG AMPUL.NEB 3 ML INHALATION ×3 (13:27→23:55)
[2021-09-22 13:31] LABS: Basophils Absolute Auto 0.03 K/mm3 (0.00-0.10); Basophils Percent Auto 0.2 % (0.0-1.0); Eosinophils Absolute Auto 0.02 K/mm3 (0.02-0.50); Eosinophils Percent Auto 0.1 % (1.0-6.0); Hematocrit 32.6 % (35.0-42.0); Hemoglobin 10.9 g/dL (11.7-13.8); Immature Granulocyte Absolute 0.06 K/mm3 (0.00-0.00); Immature Granulocyte Percent A 0.4 % (0.0-0.0); Lymphocytes Absolute Auto 1.24 K/mm3 (1.10-4.50); Mean Corpuscular HGB Conc 33.4 g/dL (32.0-36.0); Mean Corpuscular Volume 95.6 fL (78.0-102.0); Mean Platelet Volume 8.6 fl (9.2-11.8); Monocytes Absolute Auto 1.29 K/mm3 (0.10-0.90); Monocytes Percent Auto 9.3 % (2.0-11.0); Neutrophils Absolute Auto 11.2 K/mm3 (1.7-7.2); Platelet Count Result 309 K/mm3 (150-420); Red Blood Count 3.41 M/mm3 (4.20-5.40); Red Cell Distribution Width 17.2 % (11.6-14.4); White Blood Count 13.8 K/mm3 (4.8-10.8)
[2021-09-22 13:45] LABS: INR 1.1; Partial Thromboplastin Time 27.5 SEC (23.90-30.70); Prothrombin Time 11.2 Seconds (9.50-12.10)
--- NOTE | 2021-09-22 13:45 | ED.SOB ---
HPI - SOB/Dyspnea General Chief Complaint: Shortness of Breath/Dyspnea Stated Complaint: Ambulance Time Seen by Provider: 09/22/21 13:45 Source: patient and EMS Mode of arrival: EMS Limitations: no limitations History of Present Illness HPI Narrative: this is a 76-year-old female with a history of COPD and lung cancer, sees an oncologist and recently had a CT scan of her chest which showed regression of her lung cancer, patient is still a current smoker and apparently was having an increased episode of shortness of breath and called EMS patient has some nebulizers and currently not on oxygen at home. Patient had an episode were she had saturations in the mid to lower 80s and EMS arrived gave her oxygen, nebulizer treatment and steroids and O2 sats improved to 95 to 96% with 5L of oxygen. Currently the patient has a mild nonproductive cough is vaccinated for COVID there is no chest pain or tightness no abdominal pain no fever chills no diarrhea constipation. Patient with a history of lung cancer, and does follow with Oncology and is receiving chemotherapy. MD elicited complaint: shortness of breath Pertinent past history: COPD and other ( Lung cancer) Onset (ago): hour(s) Timing: constant Severity: moderate Exacerbating factors: nothing Relieving factors: oxygen, bronchodilators and medication Known history of: COPD Related Data Home Medications Medication Instructions Recorded Confirmed albuterol sulfate 2 puff INHALATION PRN 07/09/19 09/22/21 atorvastatin 10 mg PO DAILY 07/09/19 09/22/21 levothyroxine 125 mcg PO DAILY 07/09/19 09/22/21 montelukast 10 mg PO DAILY 07/09/19 09/22/21 paroxetine HCl 40 mg PO HS 07/09/19 09/22/21 diltiazem HCl 60 mg PO TID 04/29/21 09/22/21 fluticasone propionate 1 spray INTRANASAL DAILY 04/29/21 09/22/21 pantoprazole 40 mg PO BID 04/29/21 09/22/21 umeclidinium-vilanterol 1 inh INHALATION DAILY 04/29/21 09/22/21 Eliquis 5 mg PO DIRECTED 09/08/21 09/22/21 Allergies Allergy/AdvReac Type Severity Reaction Status Date / Time erythromycin base AdvReac Palpitation Verified 09/08/21 01:37 s tramadol AdvReac Vomiting Verified 09/08/21 01:37 [facility] Past Medical History Medical History Anxiety Asthma COPD (chronic obstructive pulmonary disease) Hypertension Hypothyroidism Non-small cell lung cancer Osteoarthritis Surgical History Surgical History History of lung biopsy Hx of cataract surgery Social History Social History Smoking packs per day: 1 Smoking cigarettes per day: 20.0 Years smoked: 63 Smoking pack-years: 63.00 Smoking status: Current every day smoker Tobacco type: cigarettes Alcohol intake: never Substance use: never Substance use type: does not use Gender identity (if verbalized by the patient): Female Spiritual care concerns: Yes ([facility]) Course Course Emergency Course: Patient's saturations are stable patient received DuoNeb while route via EMS, and Solu-Medrol patient received another DuoNeb here in the ER patient labs were reviewed and chest x-ray was reviewed which showed that she has left lower lobe pneumonia and Levaquin IV was given. Vital Signs Vital signs: Vital Signs Temperature 36.6 C 09/22/21 12:55 Pulse Rate 87 09/22/21 12:55 Respiratory Rate 24 H 09/22/21 12:55 Blood Pressure 98/80 L 09/22/21 12:55 Pulse Oximetry 94 09/22/21 12:55 Temperature 36.6 C 09/22/21 12:55 Pulse Rate 94 09/22/21 13:36 Respiratory Rate 20 09/22/21 13:36 Blood Pressure 98/80 L 09/22/21 12:55 Pulse Oximetry 96 09/22/21 13:36 MDM - SOB/Dyspnea Lab Data Result diagrams: 09/22/21 13:25 09/22/21 13:25 Labs: Lab Results 09/22/21 09/22/21 09/22/21 Range/Units 13:24 13:25 13:25 WBC 13.8 H (4.8-10.8) K/mm3 RBC
[2021-09-22 13:55] LABS: Alanine Aminotransferase 16 U/L (14-59); Albumin Level 2.7 g/dL (3.4-5.0); Alkaline Phosphatase 108 U/L (46-116); Anion Gap 12 mmol/L (8-16); Aspartate Amino Transferase 11 U/L (15-37); Bilirubin,Total 0.5 mg/dL (0.00-1.00); Blood Urea Nitrogen 24 mg/dL (7-18); Calcium 8.9 mg/dL (8.5-10.1); Carbon Dioxide 26 mmol/L (21-32); Chloride 98 mmol/L (98-108); Estimated Glomerular Filt Rate > 60; Glucose 135 mg/dL (70-99); Magnesium 2.1 mg/dL (1.8-2.4); NT Pro B Type Natriuretic Pept 292 pg/mL (0-450); Osmolality Calculated 288 mOsm/kg (285-295); Potassium 3.4 mmol/L (3.5-5.1); Sodium 136 mmol/L (136-145); Total Protein 7.2 g/dL (6.4-8.2); Troponin I 8.2 ng/L (0.00-60.4)
[2021-09-22] MEDS: levoFLOXacin 500 MG/D5W 100 ML 500 MG/100 ML BAG 100 MG IVPB (14:05)
--- NOTE | 2021-09-22 15:08 | PHAR ---
CONFIRMED WITH [facility] THAT PT TAKES ELIQUIS 5MG BID. TLS
[2021-09-22 15:27] LABS: SARS-CoV-2 Ag Negative (Negative)
--- NOTE | 2021-09-22 15:39 | PC.NURSE ---
[address] brownlee on pt condition, dr brownlee states pt is not candidate for surgery for fracture left wrist. requested ocl splint to be applied and she can follow up in the office for cast application.
--- NOTE | 2021-09-22 16:15 | ADMGEN ---
This patient, Priscila Birmingham, was admitted to 2nd Floor Room 204-2. Patient/family oriented to hospital policies and general routines including ID bracelet, bed and alarms, visiting hours, pain management, procedures, bathroom and other care routines, personal items, smoking policy, room service/diet, and visiting hours. Information on how to activate the Rapid Response Team has been discussed. Patient/Family are encouraged to report perceived risks to care and to ask questions if they do not understand what they are told or what they should do.
[2021-09-22] MEDS: APIXABAN 2.5 MG TABLET 5 MG BY MOUTH (21:56)
[2021-09-22] MEDS: MELATONIN 3 MG TABLET PO (21:56)
[2021-09-22] MEDS: dilTIAZem HCL 30 MG TABLET 60 MG PO (21:56)
[2021-09-22] MEDS: PARoxetine 20 MG TABLET 40 MG PO (21:56)
[2021-09-23] VITALS (9 sets, daily range): BP systolic 99; BP diastolic 69; PULSE 78–103; RESP 18–20; TEMP 36.9; O2SAT 93–100
[2021-09-23 05:19] LABS: Basophils Absolute Auto 0.01 K/mm3 (0.00-0.10); Basophils Percent Auto 0.1 % (0.0-1.0); Hematocrit 32.2 % (35.0-42.0); Hemoglobin 10.5 g/dL (11.7-13.8); Immature Granulocyte Absolute 0.05 K/mm3 (0.00-0.00); Immature Granulocyte Percent A 0.4 % (0.0-0.0); Lymphocytes Absolute Auto 0.59 K/mm3 (1.10-4.50); Lymphocytes Percent Auto 4.9 % (18.0-42.0); Mean Corpuscular HGB Conc 32.6 g/dL (32.0-36.0); Mean Corpuscular Hemoglobin 31.6 pg (27.0-31.0); Mean Platelet Volume 8.7 fl (9.2-11.8); Monocytes Absolute Auto 0.25 K/mm3 (0.10-0.90); Monocytes Percent Auto 2.1 % (2.0-11.0); Neutrophils Percent Auto 92.5 % (50.0-70.0); Platelet Count Result 294 K/mm3 (150-420); Red Blood Count 3.32 M/mm3 (4.20-5.40); Red Cell Distribution Width 17.1 % (11.6-14.4); White Blood Count 11.9 K/mm3 (4.8-10.8)
[2021-09-23] MEDS: dilTIAZem HCL 30 MG TABLET 60 MG PO ×2 (05:28→13:34)
[2021-09-23 05:29] LABS: Anion Gap 10 mmol/L (8-16); Blood Urea Nitrogen 26 mg/dL (7-18); Calcium 9.5 mg/dL (8.5-10.1); Carbon Dioxide 28 mmol/L (21-32); Chloride 98 mmol/L (98-108); Estimated Glomerular Filt Rate > 60; Glucose 109 mg/dL (70-99); Osmolality Calculated 287 mOsm/kg (285-295); Potassium 4.8 mmol/L (3.5-5.1); Sodium 136 mmol/L (136-145)
[2021-09-23] MEDS: LEVOTHYROXINE SODIUM 100 MCG, LEVOTHYROXINE SODIUM 25 MCG 125 MCG PO (05:29)
[2021-09-23] MEDS: IPRATROPIUM 0.5 MG/ALBUTEROL SULFATE 2.5 MG AMPUL.NEB 3 ML INHALATION ×2 (05:31→12:33)
--- NOTE | 2021-09-23 08:10 | PM.SD2 ---
Same Day Admit/Disch: HPI History of Present Illness Chief complaint: Pneumonia Narrative: According to emergency room notes Priscila Birmingham is a 76 year old female history of COPD and lung cancer, sees an oncologist and recently had a CT scan of her chest which showed regression of her lung cancer, patient is still a current smoker and apparently was having an increased episode of shortness of breath and called EMS patient has some nebulizers and currently not on oxygen at home. Patient had an episode were she had saturations in the mid to lower 80s and EMS arrived gave her oxygen, nebulizer treatment and steroids and O2 sats improved to 95 to 96% with 5L of oxygen. Currently the patient has a mild nonproductive cough is vaccinated for COVID there is no chest pain or tightness no abdominal pain no fever chills no diarrhea constipation. Patient with a history of lung cancer, and does follow with Oncology and is receiving chemotherapy. MD elicited complaint: shortness of breath PMFSH Past Medical History Medical History Anxiety Asthma COPD (chronic obstructive pulmonary disease) Hypertension Hypothyroidism Non-small cell lung cancer Osteoarthritis Surgical History Surgical History History of lung biopsy Hx of cataract surgery Social History Social History Smoking packs per day: 1 Smoking cigarettes per day: 20.0 Years smoked: 50 Smoking pack-years: 50.00 Smoking status: Former smoker Tobacco type: cigarettes Alcohol intake: never Substance use: never Substance use type: does not use Gender identity (if verbalized by the patient): Female Spiritual care concerns: No Same Day Admit/Disch: Med Pre-admit Medications Home Medications Medication Instructions Recorded Confirmed Type albuterol sulfate 2 puff INHALATION PRN 07/09/19 09/22/21 History atorvastatin 10 mg FEEDING TUBE DAILY 07/09/19 09/22/21 History levothyroxine 125 mcg FEEDING TUBE DAILY 07/09/19 09/22/21 History montelukast 10 mg FEEDING TUBE DAILY 07/09/19 09/22/21 History paroxetine HCl 40 mg PO HS 07/09/19 09/22/21 History diltiazem HCl 60 mg FEEDING TUBE TID 04/29/21 09/22/21 History fluticasone propionate 1 spray INTRANASAL DAILY 04/29/21 09/22/21 History pantoprazole 40 mg PO BID 04/29/21 09/22/21 History umeclidinium-vilanterol 1 inh INHALATION DAILY 04/29/21 09/22/21 History Eliquis 5 mg FEEDING TUBE BID 09/08/21 09/22/21 History ipratropium-albuterol 3 ml INHALATION Q6HRT #90 ml 09/09/21 09/22/21 Rx nebulizers #1 ea 09/09/21 09/22/21 Rx levofloxacin 500 mg PO DAILY #6 tablet 09/23/21 Rx Exam Narrative: GENERAL:Well-appearing, disheveled, and in no acute distress. HEAD:Normocephalic, atraumatic. EYES: PERRLA ENT: Nares clear, no rhinorrhea or epistaxis. Mucous membranes moist. NECK: Supple. CHEST: Clear to scattered wheezes auscultation. No respiratory distress. HEART: Regular rate and rhythm. decreased peripheral pulses. ABDOMEN: Soft, nontender, nondistended, G-tube in place mid abdomen normal active bowel sounds. EXTREMITIES: Normal range of motion. Trace edema. SKIN: Warm, dry, no rash. NEURO: No focal deficits. Alert and oriented x3. DS: Data Data Completed and Pending Labs on day of discharge: Labs from last 24 hours 09/23/21 09/23/21 09/22/21 05:06 05:06 14:48 WBC 11.9 H RBC 3.32 L Hgb 10.5 L Hct 32.2 L MCV 97.0 MCH 31.6 H MCHC 32.6 RDW 17.1 H Plt Count 294 MPV 8.7 L Immature Gran % (Auto) 0.4 H Neut % (Auto) 92.5 H Lymph % (Auto) 4.9 L [place] % (Auto) 2.1 Eos % (Auto) 0.0 L Baso % (Auto) 0.1 Lymph # (Auto) 0.59 L [place] # (Auto) 0.25 Eos # (Auto) 0.00 L Baso # (Auto) 0.01 Abs Immat Gran (auto) 0.05 H Absolute Neuts (auto) 11.0 H Absolute Nucleated RBC 0.00
--- NOTE | 2021-09-23 09:01 | HOMEO2EVAL ---
Evaluation was performed at [facility] Home Oxygen Evaluation RC: Home Oxygen (O2) Evaluation Start: 09/23/21 08:12 Freq: ONCE Status: Active Protocol: RPE Activity Type Activity Date Activity User E-Sign Co-Sign Detail Recorded Client Recorded Date Recorded By Document 09/23/21 08:40 SJB [id number] 09/23/21 08:58 SJB Document 09/23/21 08:46 SJB [id number] 09/23/21 08:58 SJB 09/23/21 09/23/21 08:40 08:46 Home O2 Evaluation Test Phase Resting Exercise Oxygen Delivery Room Air Room Air Pulse Oximetry (90-100 %) 96 93 Pulse Rate (60-100 beats/min) 94 103 H Activity Tolerance Good Rating of Perceived Dyspnea (PD) +3 Moderate Difficulty, But Can Continue Rate of Perceived Exertion (PE) 13 Somewhat Hard Ambulation Distance (feet) 360 Ambulation Distance (meters) 109.72 Home Oxygen Evaluation Comments Will begin walk Pt was walked on room air 360 ft pushing pushing wheelchair on wheelchair. room air. Audible wheezing was heard with a frequent cough but Sp02 stayed at 93% and above. Treatment Charges O2 Evaluation - Outpatient
[2021-09-23] MEDS: APIXABAN 2.5 MG TABLET 5 MG BY MOUTH (09:45)
[2021-09-23] MEDS: ATORVASTATIN 10 MG TABLET PO (09:45)
[2021-09-23] MEDS: MONTELUKAST SODIUM 10 MG TABLET PO (09:45)
[2021-09-23] MEDS: UMECLIDINIUM/VILANTEROL 62.5-25 MCG ELLIPTA 1 PUFF INHALATION (09:48)
--- NOTE | 2021-09-23 10:10 | PM.EVENT ---
Event Note Event Note Event Note: Spoke with patient son David who has been inform of the referral to pallative care answered all question and we discussed the need for possible oxygen I did inform him that she ws not needing oxygen now and that she is doing well. I did tell him we would let him know about the weather or not they have accepted her for Pallative care and who should be getting a hold of him.
--- NOTE | 2021-09-23 14:15 | PC.NURSE ---
All discharge instructions and education reviewed with patient. Patient stated understanding. All question answered. Patient denies further questions at discharge. IV site removed, tip intact. Dressing applied to site. All belongings gathered and sent home with patient. Patient accompanied to front door via wheelchair by this nurse. Left via private vehicle with son.
--- NOTE | 2021-09-28 11:42 | PC.NURSE ---
Pt states she received and understood her discharge instructions. Pt also states It was excellent when asked about her care.
== END 2021-09-23 14:15 | disposition home or self-care (01) ==
LOC: CHSED 14:03 → CHS2ND 16:08
PROVIDERS: Nurse Practitioner Family; Admitting Provider Internal Medicine; Emergency Provider Emergency Medicine; PCP Internal Medicine; Visit Provider Internal Medicine
DX: J44.1 Chronic obstructive pulmonary disease with (acute) exacerbation (principal); J44.0 Chronic obstructive pulmonary disease with (acute) lower respiratory infection; J18.9 Pneumonia, unspecified organism; C34.90 Malignant neoplasm of unspecified part of unspecified bronchus or lung; I10 Essential (primary) hypertension; E03.9 Hypothyroidism, unspecified; M19.90 Unspecified osteoarthritis, unspecified site; F17.210 Nicotine dependence, cigarettes, uncomplicated; F41.9 Anxiety disorder, unspecified; Z20.822 Contact with and (suspected) exposure to COVID-19; Z99.81 Dependence on supplemental oxygen; Z79.899 Other long term (current) drug therapy; Z93.1 Gastrostomy status
CPT/HCPCS: 36415; 36600; 71045; 80048; 80053; 83735; 83880; 84484; 85025; 85610; 85730; 87040; 87426; 93005; 94618; 94640; 96365; 99285; A9270; C9803; G0378; J1956